=== PATIENT | female | born 1970 | race Caucasian/White ===

== ENCOUNTER → 2016-11-17 | Outpatient (CLI) | payer BC ==
[2016-11-17 10:44] LABS: CH 29.4; CHCM 33.1; HDW 2.98; HGB 12.9 gm/dL (11.4-16.0); MCH 28.8 pg (25.0-35.0); MCHC 32.2 g/dL (31.0-37.0); MCV 89.3 fL (80.0-100.0); RBC 4.48 m/uL (3.80-5.40); RDW 14.1 % (11.5-15.5); WBC 3.8 k/uL (3.8-10.6); WBC (Perox) 3.93
[2016-11-17 10:53] LABS: ALT 22 U/L (9-52); AST 20 U/L (14-36); Alkaline Phosphatase 83 U/L (38-126); Anion Gap 7 mmol/L; Blood Urea Nitrogen 16 mg/dL (7-17); Calcium 9.6 mg/dL (8.4-10.2); Carbon Dioxide 30 mmol/L (22-30); Chloride 105 mmol/L (98-107); Cholesterol 166 mg/dL (<200); Glucose 91 mg/dL (74-99); HDL Cholesterol 64 mg/dL (40-60); Non-African American GFR(MDRD) >60 (>60 ml/min/1.73 sqM); Potassium 4.9 mmol/L (3.5-5.1); Sodium 142 mmol/L (137-145); Total Bilirubin 0.8 mg/dL (0.2-1.3); Total Protein 7.7 g/dL (6.3-8.2); Triglycerides 111 mg/dL (<150)
[2016-11-17 10:56] LABS: Add Differential Manual Differential
[2016-11-17 10:58] LABS: Manual Review Performed; Nucleated Red Blood Cells 0 /100 WBC (0-0); RBC Morphology Normal; Total Cells Counted 100
== END | disposition home or self-care (01) ==
LOC: LABWHC1 10:09
PROVIDERS: ATTEND Family Medicine
DX: Z00.01 Encounter for general adult medical examination with abnormal findings (principal); D72.819 Decreased white blood cell count, unspecified; E03.9 Hypothyroidism, unspecified; E55.9 Vitamin D deficiency, unspecified
CPT/HCPCS: 36415; 80053; 80061; 82306; 84439; 84443; 85025

== ENCOUNTER → 2017-05-25 | Outpatient (CLI) | payer BC ==
--- NOTE | 2017-05-27 08:02 | MM ---
Reason for exam: screening (asymptomatic). Last mammogram was performed 1 year and 2 months ago. History: Family history of breast cancer in paternal aunt. Benign cyst aspiration of the left breast, 1996. Taking hormonal contraceptives for 9 months beginning at age 33. Physical Findings: A clinical breast exam by your physician is recommended on an annual basis and results should be correlated with mammographic findings. MG Screening Mammo w CAD Bilateral CC and MLO view(s) were taken. Prior study comparison: March 27, 2016, bilateral MG screening mammo w CAD. December 26, 2014, bilateral MG screening mammo w CAD. The breast tissue is heterogeneously dense. This may lower the sensitivity of mammography. There is chronic nodularity bilaterally. There is no dominant lesion. No significant changes when compared with prior studies. ASSESSMENT: Benign, BI-RAD 2 RECOMMENDATION: Routine screening mammogram of both breasts in 1 year.
== END ==
LOC: RADMAMWWP 10:44
PROVIDERS: ATTEND Obstetrics & Gynecology
DX: Z12.31 Encounter for screening mammogram for malignant neoplasm of breast (principal)

== ENCOUNTER → 2017-05-25 | Outpatient (CLI) | payer BC ==
[2017-05-25 11:13] LABS: ALT 30 U/L (9-52); AST 19 U/L (14-36); Alkaline Phosphatase 74 U/L (38-126); Anion Gap 9 mmol/L; Blood Urea Nitrogen 10 mg/dL (7-17); Calcium 9.4 mg/dL (8.4-10.2); Carbon Dioxide 25 mmol/L (22-30); Chloride 105 mmol/L (98-107); Glucose 90 mg/dL (74-99); Non-African American GFR(MDRD) >60 (>60 ml/min/1.73 sqM); Potassium 4.6 mmol/L (3.5-5.1); Sodium 139 mmol/L (137-145); Total Bilirubin 0.7 mg/dL (0.2-1.3); Total Protein 7.4 g/dL (6.3-8.2)
[2017-05-25 11:20] LABS: Basophils % (A) 1 %; CH 29.7; CHCM 32.6; Eosinophils # (A) 0.1 k/uL (0-0.7); Eosinophils % (A) 1 %; HDW 3.18; HGB 13.1 gm/dL (11.4-16.0); Luc # (Auto) 0.13; Luc % (Auto) 3; Lymphocytes # (A) 1.6 k/uL (1.0-4.8); Lymphocytes % (A) 35 %; MCH 28.6 pg (25.0-35.0); MCHC 31.2 g/dL (31.0-37.0); MCV 91.6 fL (80.0-100.0); Mean Platelet Volume 6.8; Monocytes # (A) 0.3 k/uL (0-1.0); Monocytes % (A) 7 %; Neutrophils # (A) 2.4 k/uL (1.3-7.7); Neutrophils % (A) 53 %; RBC 4.59 m/uL (3.80-5.40); RDW 13.7 % (11.5-15.5); WBC 4.5 k/uL (3.8-10.6); WBC (Perox) 4.48
== END | disposition home or self-care (01) ==
LOC: LABWHC1 10:34
PROVIDERS: ATTEND Family Medicine
DX: E55.9 Vitamin D deficiency, unspecified (principal); E03.9 Hypothyroidism, unspecified; K21.9 Gastro-esophageal reflux disease without esophagitis; D72.819 Decreased white blood cell count, unspecified
CPT/HCPCS: 36415; 80053; 82306; 84439; 84443; 85025

== ENCOUNTER 2017-11-19 08:24 | Day surgery (SDC) | payer BC ==
[2017-11-16 15:50] VITALS: BMI 32.6
[~2017-11-19 08:24] MED LIST: LACTATED RINGERS 1,000 ML IV SCH; LIDOCAINE 1% 20 ML VIAL (10MG/ML) FOR IV START INTRADERMA PRN; MIDAZOLAM 2 MG/2 ML VIAL IV PRN
[2017-11-19 09:19] VITALS: TEMP 98.5
[2017-11-19 09:21] VITALS: RESP 16
[2017-11-19] MEDS ORDERED: ONDANSETRON 4 MG/2 ML VIAL IVP ONE (09:39)
[2017-11-19] MEDS ORDERED: PROPOFOL 10 MG/ML 20 ML VIAL IV ONE (09:49)
--- NOTE | 2017-11-19 10:21 | P.PCN ---
Date of Procedure: 11/19/17 Procedure(s) Performed: BRIEF HISTORY: Patient is a 46-year-old pleasant white female, scheduled for an elective colonoscopy as a part of evaluation of prior history of colon polyps. PROCEDURE PERFORMED: Colonoscopy. PREOPERATIVE DIAGNOSIS: History of colon polyps. IV sedation per Anesthesia. PROCEDURE: After informed consent was obtained, the patient, was brought into the endoscopy unit. IV sedation was administered by Anesthesia under continuous monitoring. Digital rectal examination was normal. Initially the Olympus CF- 160 flexible video colonoscope was then inserted in the rectum, gradually advanced into the cecum without any difficulty. Careful examination was performed as the scope was gradually being withdrawn. Ileocecal valve and the appendiceal orifice were visualized and appeared normal. Prep was excellent. Mucosa of the cecum, ascending colon, transverse colon, descending colon, sigmoid colon, and rectum appeared normal. Retroflexion was performed in the rectum and no lesions were seen. The patient tolerated the procedure well. IMPRESSION: Normal-appearing colon from rectum to cecum with no evidence of colorectal neoplasia . RECOMMENDATIONS: Findings of this examination were discussed with the patient as well as her family. She was advised to have a repeat surveillance colonoscopy in 5 years from now because of the prior history of colon polyps..
[2017-11-19 10:57] VITALS: BP 122/80; PULSE 70
== END 2017-11-19 11:17 | disposition home or self-care (01) ==
LOC: ORWHC2ENDO 08:24
PROVIDERS: ATTEND Internal Medicine Gastroenterology
DX: Z12.11 Encounter for screening for malignant neoplasm of colon (principal); Z86.010 Personal history of colon polyps; I25.10 Atherosclerotic heart disease of native coronary artery without angina pectoris; E07.9 Disorder of thyroid, unspecified; K21.9 Gastro-esophageal reflux disease without esophagitis; Z79.890 Hormone replacement therapy; Z79.899 Other long term (current) drug therapy; Z88.1 Allergy status to other antibiotic agents; Z88.2 Allergy status to sulfonamides
CPT/HCPCS: J2405; J2704; G0105; 45378

== ENCOUNTER → 2017-11-23 | Outpatient (CLI) | payer BC ==
[2017-11-23 11:16] LABS: ALT 34 U/L (9-52); AST 30 U/L (14-36); Albumin 4.3 g/dL (3.5-5.0); Alkaline Phosphatase 77 U/L (38-126); Anion Gap 12 mmol/L; Blood Urea Nitrogen 12 mg/dL (7-17); Calcium 9.4 mg/dL (8.4-10.2); Carbon Dioxide 27 mmol/L (22-30); Chloride 104 mmol/L (98-107); Glucose 95 mg/dL (74-99); Potassium 4.5 mmol/L (3.5-5.1); Sodium 143 mmol/L (137-145); Total Bilirubin 0.9 mg/dL (0.2-1.3); Total Protein 6.8 g/dL (6.3-8.2)
== END | disposition home or self-care (01) ==
LOC: LABWHC1 10:12
PROVIDERS: ATTEND Family Medicine
DX: E03.9 Hypothyroidism, unspecified (principal); E55.9 Vitamin D deficiency, unspecified; K21.9 Gastro-esophageal reflux disease without esophagitis; E66.09 Other obesity due to excess calories
CPT/HCPCS: 36415; 80053; 82306; 84439; 84443

== ENCOUNTER → 2018-05-18 | Outpatient (CLI) | payer BC ==
--- NOTE | 2018-05-18 08:07 | US ---
EXAMINATION TYPE: US thyroid st tissue head/neck DATE OF EXAM: 05/18/2018 COMPARISON: NONE CLINICAL HISTORY: R22.0 swelling mass probably abnormality. Patient feels like there is something in her throat when she swallows GLAND SIZE: Right Lobe: 4.3 x 1.3 x 1.4 cm Overall Parenchyma: heterogenous Left Lobe: 4.0 x 0.9 x 1.3 cm Overall Parenchyma: heterogeneous Isthmus Thickness: 0.3 cm NODULES RIGHT: # of nodules measured on right: 0 LEFT: # of nodules measured on left: 0 ISTHMUS: # of nodules measured in the isthmus: 0 Bilateral neck scanned, no evidence of lymphadenopathy. Thyroid gland appears diffusely heterogeneous bilaterally. IMPRESSION: Diffuse glandular heterogeneity is nonspecific. No distinct nodules appreciated.
== END | disposition home or self-care (01) ==
LOC: RADUSWWP 07:04
PROVIDERS: ATTEND Family Medicine
DX: R22.0 Localized swelling, mass and lump, head (principal)
CPT/HCPCS: 76536

== ENCOUNTER → 2018-05-27 | Outpatient (CLI) | payer BC ==
[2018-05-27 11:33] LABS: Basophils % (A) 1 %; Eosinophils # (A) 0.1 k/uL (0-0.7); Eosinophils % (A) 3 %; HCT 37.4 % (34.0-46.0); HGB 12.6 gm/dL (11.4-16.0); Lymphocytes # (A) 1.5 k/uL (1.0-4.8); Lymphocytes % (A) 41 %; MCH 29.8 pg (25.0-35.0); MCHC 33.6 g/dL (31.0-37.0); MCV 88.6 fL (80.0-100.0); Mean Platelet Volume 6.9; Monocytes # (A) 0.3 k/uL (0-1.0); Monocytes % (A) 8 %; Neutrophils # (A) 1.6 k/uL (1.3-7.7); Neutrophils % (A) 44 %; Platelet Count 162 k/uL (150-450); RBC 4.22 m/uL (3.80-5.40); RDW 14.8 % (11.5-15.5); WBC 3.7 k/uL (3.8-10.6)
[2018-05-27 19:12] LABS: Albumin 4.5 g/dL (3.80-4.90); Albumin/Globulin Ratio 2.05 (1.20-2.10); Anion Gap 7.3 mmol/L (4.00-12.00); Calcium 9.3 mg/dL (8.7-10.3); Carbon Dioxide 28.7 mmol/L (21.6-31.8); Globulin 2.2 g/dL (2.1-3.7); LDL Cholesterol,Calculated 90.8 mg/dL (0.0-131.0); Potassium 4.5 mmol/L (3.5-5.5); Total Bilirubin 0.8 mg/dL (0.3-1.2); Total Protein 6.7 g/dL (6.2-8.2); VLDL Calculation 20.2 mg/dL (5.00-40.00)
== END | disposition home or self-care (01) ==
LOC: LABWHC1 10:32
PROVIDERS: ATTEND Family Medicine
DX: E03.9 Hypothyroidism, unspecified (principal); E55.9 Vitamin D deficiency, unspecified; K21.9 Gastro-esophageal reflux disease without esophagitis; E66.09 Other obesity due to excess calories
CPT/HCPCS: 36415; 80053; 80061; 82306; 84443; 85025

== ENCOUNTER → 2018-06-07 | Outpatient (CLI) | payer BC ==
--- NOTE | 2018-06-13 09:46 | MM ---
Reason for exam: screening (asymptomatic). Last mammogram was performed 1 year ago. History: Family history of breast cancer in paternal aunt. Benign cyst aspiration of the left breast, 1996. Taking hormonal contraceptives for 9 months beginning at age 33. Physical Findings: A clinical breast exam by your physician is recommended on an annual basis and results should be correlated with mammographic findings. MG Screening Mammo w CAD Bilateral CC and MLO view(s) were taken. Prior study comparison: May 25, 2017, bilateral MG screening mammo w CAD. March 27, 2016, bilateral MG screening mammo w CAD. The breast tissue is heterogeneously dense. This may lower the sensitivity of mammography. No significant changes when compared with prior studies. ASSESSMENT: Benign, BI-RAD 2 RECOMMENDATION: Routine screening mammogram of both breasts in 1 year.
== END | disposition home or self-care (01) ==
LOC: RADMAMWWP 08:16
PROVIDERS: ATTEND Obstetrics & Gynecology
DX: Z12.31 Encounter for screening mammogram for malignant neoplasm of breast (principal)
CPT/HCPCS: 77067

== ENCOUNTER → 2018-11-17 | Outpatient (CLI) | payer BC ==
[2018-11-17 07:52] LABS: HCT 35.5 % (34.0-46.0); HGB 12.1 gm/dL (11.4-16.0); MCH 29.9 pg (25.0-35.0); MCHC 33.9 g/dL (31.0-37.0); MCV 88.1 fL (80.0-100.0); Mean Platelet Volume 6.6; Platelet Count 169 k/uL (150-450); Poikilocytosis Slight; RBC 4.03 m/uL (3.80-5.40); RDW 15.1 % (11.5-15.5); WBC 3.6 k/uL (3.8-10.6)
[2018-11-17 11:40] LABS: Albumin 4.5 g/dL (3.80-4.90); Albumin/Globulin Ratio 2.05 (1.60-3.17); Anion Gap 10.8 mmol/L (4.00-12.00); Calcium 9.5 mg/dL (8.7-10.3); Carbon Dioxide 28.2 mmol/L (21.6-31.8); Globulin 2.2 g/dL (1.6-3.3); Potassium 4.6 mmol/L (3.5-5.5); Total Bilirubin 0.9 mg/dL (0.3-1.2); Total Protein 6.7 g/dL (6.2-8.2)
[2018-11-17 11:42] LABS: Iron Saturation 23.13 (12.00-45.00)
[2018-11-17 11:49] LABS: T4, Free (Free Thyroxine) 1.2 ng/dL (0.80-1.80)
[2018-11-17 11:50] LABS: Vitamin D 25 Hydroxy 35.6 ng/mL (30.0-100.0)
[2018-11-17 11:52] LABS: Insulin Level 6.3 mIU/mL (3.0-25.0)
[2018-11-17 12:22] LABS: Thyroid Peroxidase Antibodies 294.9 U/mL (0.0-60.0)
[2018-11-17 14:40] LABS: Hemoglobin A1C 4.2 % (4.0-6.0)
== END | disposition home or self-care (01) ==
LOC: LABWHC1 07:22
PROVIDERS: ATTEND Clinical Nurse Specialist Women's Health
DX: E03.9 Hypothyroidism, unspecified (principal); E55.9 Vitamin D deficiency, unspecified; L60.9 Nail disorder, unspecified; R53.83 Other fatigue
CPT/HCPCS: 36415; 80053; 82306; 82607; 82728; 83036; 83525; 83540; 83550; 84439; 84443; 84481; 84482; 85027; 86376

== ENCOUNTER → 2019-05-30 | Outpatient (CLI) | payer BC ==
[2019-05-30 11:24] LABS: Basophils # (A) 0.1 k/uL (0-0.2); Basophils % (A) 2 %; Eosinophils # (A) 0.1 k/uL (0-0.7); Eosinophils % (A) 2 %; HCT 38.1 % (34.0-46.0); HGB 12.4 gm/dL (11.4-16.0); Lymphocytes # (A) 1.6 k/uL (1.0-4.8); Lymphocytes % (A) 38 %; MCH 28.5 pg (25.0-35.0); MCHC 32.5 g/dL (31.0-37.0); MCV 87.8 fL (80.0-100.0); Mean Platelet Volume 6.6; Monocytes # (A) 0.3 k/uL (0-1.0); Monocytes % (A) 8 %; Neutrophils % (A) 47 %; Platelet Count 193 k/uL (150-450); RBC 4.34 m/uL (3.80-5.40); RDW 14.9 % (11.5-15.5); WBC 4.1 k/uL (3.8-10.6)
[2019-05-30 17:28] LABS: African American GFR (CKD) 117.9 (60.0-200.0); Albumin 4.5 g/dL (3.80-4.90); Albumin/Globulin Ratio 2.25 (1.60-3.17); Anion Gap 8.4 mmol/L (4.00-12.00); BUN/Creat Ratio 18.57 Ratio (12.00-20.00); Calcium 9.2 mg/dL (8.7-10.3); Carbon Dioxide 26.6 mmol/L (21.6-31.8); Chol/HDL Ratio 2.8; LDL Cholesterol,Calculated 71.4 mg/dL (0.0-131.0); Potassium 4.8 mmol/L (3.5-5.5); Total Bilirubin 0.7 mg/dL (0.3-1.2); Total Protein 6.5 g/dL (6.2-8.2); VLDL Calculation 18.6 mg/dL (5.00-40.00)
== END | disposition home or self-care (01) ==
LOC: LABWHC1 10:14
PROVIDERS: ATTEND Family Medicine
DX: E03.9 Hypothyroidism, unspecified (principal); E55.9 Vitamin D deficiency, unspecified
CPT/HCPCS: 36415; 80053; 80061; 82306; 82607; 85025

== ENCOUNTER → 2019-11-28 | Outpatient (CLI) | payer BC ==
[2019-11-28 10:33] LABS: Basophils % (A) 1 %; Eosinophils # (A) 0.1 k/uL (0-0.7); Eosinophils % (A) 1 %; HCT 37.3 % (34.0-46.0); Hypochromasia Slight; Lymphocytes # (A) 1.5 k/uL (1.0-4.8); Lymphocytes % (A) 40 %; MCH 28.6 pg (25.0-35.0); MCHC 32.2 g/dL (31.0-37.0); MCV 88.8 fL (80.0-100.0); Mean Platelet Volume 7.5; Monocytes # (A) 0.2 k/uL (0-1.0); Monocytes % (A) 6 %; Neutrophils # (A) 1.8 k/uL (1.3-7.7); Neutrophils % (A) 48 %; Platelet Count 180 k/uL (150-450); RDW 14.8 % (11.5-15.5); WBC 3.8 k/uL (3.8-10.6)
[2019-11-28 15:55] LABS: African American GFR (CKD) 117.9 (60.0-200.0); Albumin 4.3 g/dL (3.80-4.90); Albumin/Globulin Ratio 1.95 (1.60-3.17); Anion Gap 6.1 mmol/L (4.00-12.00); Calcium 9.3 mg/dL (8.7-10.3); Carbon Dioxide 28.9 mmol/L (21.6-31.8); Globulin 2.2 g/dL (1.6-3.3); Non-African American GFR(CKD) 101.7 (60.0-200.0); Potassium 4.7 mmol/L (3.5-5.5); Total Bilirubin 0.9 mg/dL (0.2-1.2); Total Protein 6.5 g/dL (6.2-8.2)
[2019-11-28 16:01] LABS: T4, Free (Free Thyroxine) 1.2 ng/dL (0.80-1.80)
== END | disposition home or self-care (01) ==
LOC: LABWHC1 09:54
PROVIDERS: ATTEND Family Medicine
DX: Z00.01 Encounter for general adult medical examination with abnormal findings (principal); E03.9 Hypothyroidism, unspecified; D72.819 Decreased white blood cell count, unspecified; E55.9 Vitamin D deficiency, unspecified
CPT/HCPCS: 36415; 80053; 82306; 84439; 84443; 85025

== ENCOUNTER → 2020-05-15 | Outpatient (CLI) | payer BC | END | disposition home or self-care (01) | LOC: LABWHC1 11:01 | PROVIDERS: ATTEND Obstetrics & Gynecology | DX: U07.1 COVID-19 (principal) | CPT/HCPCS: U0003; C9803 ==

== ENCOUNTER → 2020-05-31 | Outpatient (CLI) | payer BC ==
[2020-05-31 08:21] LABS: Basophils % (A) 1 %; Eosinophils % (A) 1 %; HCT 36.8 % (34.0-46.0); HGB 12.1 gm/dL (11.4-16.0); Lymphocytes # (A) 1.3 k/uL (1.0-4.8); Lymphocytes % (A) 36 %; MCH 28.7 pg (25.0-35.0); MCV 87.1 fL (80.0-100.0); Mean Platelet Volume 6.9; Monocytes # (A) 0.3 k/uL (0-1.0); Monocytes % (A) 7 %; Neutrophils # (A) 1.9 k/uL (1.3-7.7); Neutrophils % (A) 52 %; Platelet Count 156 k/uL (150-450); RBC 4.22 m/uL (3.80-5.40); RDW 14.4 % (11.5-15.5); WBC 3.6 k/uL (3.8-10.6)
[2020-05-31 16:06] LABS: African American GFR (CKD) 117.1 (60.0-200.0); Albumin 4.4 g/dL (3.80-4.90); Albumin/Globulin Ratio 2.1 (1.60-3.17); Anion Gap 6.7 mmol/L (4.00-12.00); Calcium 9.3 mg/dL (8.7-10.3); Carbon Dioxide 29.3 mmol/L (21.6-31.8); Chol/HDL Ratio 2.65; Globulin 2.1 g/dL (1.6-3.3); LDL Cholesterol,Calculated 63.8 mg/dL (0.0-131.0); Potassium 4.7 mmol/L (3.5-5.5); Total Bilirubin 0.8 mg/dL (0.3-1.2); Total Protein 6.5 g/dL (6.2-8.2); VLDL Calculation 17.2 mg/dL (5.00-40.00)
[2020-05-31 16:07] LABS: T4, Free (Free Thyroxine) 1.4 ng/dL (0.80-1.80)
== END | disposition home or self-care (01) ==
LOC: LABWHC1 07:30
PROVIDERS: ATTEND Family Medicine
DX: E03.9 Hypothyroidism, unspecified (principal); E55.9 Vitamin D deficiency, unspecified; K21.9 Gastro-esophageal reflux disease without esophagitis; R60.0 Localized edema
CPT/HCPCS: 36415; 80053; 80061; 82306; 84439; 84443; 85025

== ENCOUNTER → 2020-07-30 | Outpatient (CLI) | payer BC ==
--- NOTE | 2020-08-01 13:57 | MM ---
Reason for exam: screening (asymptomatic). Last mammogram was performed 1 year and 1 month ago. History: Family history of breast cancer in paternal aunt. Benign cyst aspiration of the left breast, 1996. Taking hormonal contraceptives for 9 months beginning at age 33. Physical Findings: A clinical breast exam by your physician is recommended on an annual basis and results should be correlated with mammographic findings. MG Screening Mammo w CAD Bilateral CC and MLO view(s) were taken. Prior study comparison: June 29, 2019, bilateral MG screening mammo w CAD. June 07, 2018, bilateral MG screening mammo w CAD. The breast tissue is heterogeneously dense. This may lower the sensitivity of mammography. No significant changes when compared with prior studies. ASSESSMENT: Negative, BI-RAD 1 RECOMMENDATION: Routine screening mammogram of both breasts in 1 year.
== END | disposition home or self-care (01) ==
LOC: RADMAMWWP 13:54
PROVIDERS: ATTEND Obstetrics & Gynecology
DX: Z12.31 Encounter for screening mammogram for malignant neoplasm of breast (principal)
CPT/HCPCS: 77067

== ENCOUNTER → 2020-11-29 | Outpatient (CLI) | payer BC ==
[2020-11-29 19:29] LABS: African American GFR (CKD) 99.6 (60.0-200.0); Albumin 4.7 g/dL (3.80-4.90); Albumin/Globulin Ratio 2.04 (1.60-3.17); Anion Gap 9.1 mmol/L (4.00-12.00); Calcium 9.3 mg/dL (8.7-10.3); Carbon Dioxide 26.9 mmol/L (21.6-31.8); Globulin 2.3 g/dL (1.6-3.3); Total Bilirubin 0.9 mg/dL (0.3-1.2)
[2020-11-29 19:38] LABS: T4, Free (Free Thyroxine) 1.2 ng/dL (0.80-1.80)
[2020-11-29 20:52] LABS: Basophils # (A) 0.02 X 10*3/uL (0.00-0.10); Basophils % (A) 0.4 %; Eosinophils # (A) 0.05 X 10*3/uL (0.04-0.35); Eosinophils % (A) 1.1 %; HCT 36.7 % (37.2-46.3); HGB 11.5 g/dL (12.0-15.0); Lymphocytes # (A) 1.87 X 10*3/uL (0.90-5.00); Lymphocytes % (A) 41.3 %; MCH 28.2 pg (27.0-32.0); MCHC 31.3 g/dL (32.0-37.0); Mean Platelet Volume 10.3 fL (9.5-12.2); Monocytes # (A) 0.57 X 10*3/uL (0.20-1.00); Monocytes % (A) 12.6 %; Neutrophils # (A) 2.01 X 10*3/uL (1.80-7.70); Neutrophils % (A) 44.4 %; Platelet Count 157 X 10*3/uL (140-440); RBC 4.08 X 10*6/uL (4.10-5.20); RDW 14.4 % (11.5-14.5); WBC 4.53 X 10*3/uL (4.50-10.00)
== END | disposition home or self-care (01) ==
LOC: LABWHC1 14:00
PROVIDERS: ATTEND Obstetrics & Gynecology
DX: E03.9 Hypothyroidism, unspecified (principal); K21.9 Gastro-esophageal reflux disease without esophagitis; D72.819 Decreased white blood cell count, unspecified; E55.9 Vitamin D deficiency, unspecified
CPT/HCPCS: 36415; 80053; 82306; 84439; 84443; 85025

== ENCOUNTER → 2020-12-06 | Outpatient (CLI) | payer BC ==
[2020-12-06 20:55] LABS: Basophils # (A) 0.02 X 10*3/uL (0.00-0.10); Basophils % (A) 0.5 %; Eosinophils # (A) 0.07 X 10*3/uL (0.04-0.35); Eosinophils % (A) 1.8 %; HCT 36.7 % (37.2-46.3); HGB 11.2 g/dL (12.0-15.0); Lymphocytes % (A) 45.3 %; MCH 27.2 pg (27.0-32.0); MCHC 30.5 g/dL (32.0-37.0); MCV 89.1 fL (80.0-97.0); Mean Platelet Volume 10.4 fL (9.5-12.2); Monocytes # (A) 0.52 X 10*3/uL (0.20-1.00); Monocytes % (A) 13.1 %; Neutrophils # (A) 1.55 X 10*3/uL (1.80-7.70); Platelet Count 157 X 10*3/uL (140-440); RBC 4.12 X 10*6/uL (4.10-5.20); RDW 14.4 % (11.5-14.5); WBC 3.97 X 10*3/uL (4.50-10.00)
[2020-12-06 21:50] LABS: % Iron Saturation 21.25 (12.00-45.00)
== END | disposition home or self-care (01) ==
LOC: LABWHC1 12:37
PROVIDERS: ATTEND Family Medicine
DX: D64.9 Anemia, unspecified (principal)
CPT/HCPCS: 36415; 82607; 82728; 82747; 83540; 83550; 85025

== ENCOUNTER → 2021-06-07 | Outpatient (CLI) | payer BC ==
[2021-06-07 18:17] LABS: ALT 27 U/L (8-44); AST 25 U/L (13-35); African American GFR (CKD) 118.6 (60.0-200.0); Albumin 4.5 g/dL (3.8-4.9); Albumin/Globulin Ratio 2.12 (1.60-3.17); Alkaline Phosphatase 92 U/L (41-126); Blood Urea Nitrogen 11.4 mg/dL (9.0-27.0); Carbon Dioxide 24.3 mmol/L (21.6-31.8); Chloride 103 mmol/L (96-109); Chol/HDL Ratio 2.73 Ratio; Globulin 2.1 g/dL (1.6-3.3); Glucose 100 mg/dL (70-110); LDL Cholesterol,Calculated 56.6 mg/dL (0.0-131.0); Non-African American GFR(CKD) 102.3 (60.0-200.0); Potassium 4.7 mmol/L (3.5-5.5); Sodium 140 mmol/L (135-145); Total Protein 6.7 g/dL (6.2-8.2); VLDL Calculation 16.26 mg/dL (5.00-40.00)
== END | disposition home or self-care (01) ==
LOC: LABWHC1 09:51
PROVIDERS: ATTEND Family Medicine
DX: D72.819 Decreased white blood cell count, unspecified (principal); D64.9 Anemia, unspecified; E55.9 Vitamin D deficiency, unspecified; E03.9 Hypothyroidism, unspecified
CPT/HCPCS: 36415; 80053; 80061; 84439; 84443

== ENCOUNTER → 2021-06-10 | Outpatient (CLI) | payer BC ==
[2021-06-10 14:55] LABS: Basophils # (A) 0.01 X 10*3/uL (0.00-0.10); Basophils % (A) 0.3 %; Eosinophils # (A) 0.03 X 10*3/uL (0.04-0.35); Eosinophils % (A) 0.9 %; HCT 33.2 % (37.2-46.3); HGB 10.4 g/dL (12.0-15.0); Lymphocytes # (A) 1.35 X 10*3/uL (0.90-5.00); Lymphocytes % (A) 41.8 %; MCHC 31.3 g/dL (32.0-37.0); MCV 89.2 fL (80.0-97.0); Mean Platelet Volume 10.3 fL (9.5-12.2); Monocytes # (A) 0.43 X 10*3/uL (0.20-1.00); Monocytes % (A) 13.3 %; Neutrophils % (A) 43.4 %; Platelet Count 143 X 10*3/uL (140-440); RBC 3.72 X 10*6/uL (4.10-5.20); RDW 16.2 % (11.5-14.5); WBC 3.23 X 10*3/uL (4.50-10.00)
== END | disposition home or self-care (01) ==
LOC: LABWHC1 08:06
PROVIDERS: ATTEND Family Medicine
DX: E03.9 Hypothyroidism, unspecified (principal); D64.9 Anemia, unspecified; E55.9 Vitamin D deficiency, unspecified; D72.819 Decreased white blood cell count, unspecified
CPT/HCPCS: 36415; 85025

== ENCOUNTER → 2021-07-01 | Outpatient (CLI) | payer BC ==
--- NOTE | 2021-07-01 18:19 | US ---
EXAMINATION TYPE: US abdomen limited DATE OF EXAM: 07/01/2021 COMPARISON: NONE CLINICAL HISTORY: 50-year-old female R22.2 localized swelling mass and lump, trunk. Patient has lump for a few weeks. TECHNIQUE: Multiple sonographic images of the left upper quadrant along the patient's site of palpabl e abnormality. FINDINGS: Sales Support Assistant notes: Area of palp correlates to enlarged spleen measuring 25.5cm in length and 1968.5 ml in volume. Incidental mildly enlarged portal vein 1.6cm. Incidental gallstones seen within contracted GB Left kidney measures 9.3 cm without hydronephrosis. IMPRESSION: 1. Targeted scanning along the patient's left upper quadrant palpable site shows severe splenomegaly up to 25.5 cm. Further correlation and workup is advised as the degree of splenic enlargement places the patient at risk for splenic injury. 2. Portal vein caliber is mildly enlarged. This may reflect underlying portal venous hypertension. Ag ain, consider further workup. 3. Cholelithiasis.
== END | disposition home or self-care (01) ==
LOC: RADUSWWP 14:48
PROVIDERS: ATTEND Family Medicine
DX: R16.1 Splenomegaly, not elsewhere classified (principal); K80.20 Calculus of gallbladder without cholecystitis without obstruction
CPT/HCPCS: 76705

== ENCOUNTER → 2021-07-02 | Outpatient (CLI) | payer BC ==
[2021-07-02 12:02] LABS: ALT 16 U/L (4-34); AST 36 U/L (14-36); African American GFR (CKD) >90 (>60 ml/min/1.73 sqM); Albumin 4.3 g/dL (3.5-5.0); Alkaline Phosphatase 77 U/L (38-126); Anion Gap 8 mmol/L; Blood Urea Nitrogen 11 mg/dL (7-17); Calcium 9.3 mg/dL (8.4-10.2); Carbon Dioxide 30 mmol/L (22-30); Chloride 100 mmol/L (98-107); Glucose 109 mg/dL (74-99); Non-African American GFR(CKD) >90 (>60 ml/min/1.73 sqM); Potassium 4.1 mmol/L (3.5-5.1); Sodium 138 mmol/L (137-145); Total Bilirubin 1.6 mg/dL (0.2-1.3); Total Protein 6.8 g/dL (6.3-8.2)
[2021-07-02 12:05] LABS: Anisocytosis Slight; HCT 28.8 % (34.0-46.0); HGB 9.3 gm/dL (11.4-16.0); Hypochromasia Slight; MCH 28.3 pg (25.0-35.0); MCHC 32.2 g/dL (31.0-37.0); Mean Platelet Volume 7.5; Platelet Count 149 k/uL (150-450); Poikilocytosis Moderate; RBC 3.27 m/uL (3.80-5.40); RDW 17.5 % (11.5-15.5); WBC 2.9 k/uL (3.8-10.6)
[2021-07-02 12:58] LABS: Band Neutrophils % 2 %; Eosinophils # (M) 0.03 k/uL (0-0.7); Lymphocytes # (M) 1.28 k/uL (1.0-4.8); Monocytes # (M) 0.23 k/uL (0-1.0); Neutrophils % (M) 45 %; Nucleated Red Blood Cells 0 /100 WBC (0-0); Total Cells Counted 100
[2021-07-02 12:59] LABS: Polychromasia Present
--- NOTE | 2021-07-03 09:01 | CT ---
EXAMINATION TYPE: CT ChestAbdPelvis w con DATE OF EXAM: 07/02/2021 COMPARISON: Ultrasound abdomen limited from one day earlier. HISTORY: Splenomegaly and chest pain. Recent abnormal ultrasound. Palpable mass in the abdomen. CT DLP: 1949 mGycm. Automated Exposure Control for Dose Reduction was Utilized. CONTRAST: CT scan of the thorax, abdomen and pelvis is performed with IV Contrast, patient injected with 100 ml mL of Isovue 300. FINDINGS: LUNGS: The lungs are grossly clear, there is no concerning parenchymal mass or nodule identified. T here is no pleural effusion or pneumothorax seen. The tracheobronchial tree is patent. MEDIASTINUM: There are no greater than 1 cm hilar or mediastinal lymph nodes. No cardiomegaly or pe ricardial effusion is seen. Ascending aorta measures up to 3.6 cm in diameter. LIVER/GB: Mild hepatomegaly. Main portal vein is patent and mildly dilated measuring up to 1.7 cm axi al image 64. There is dilated but patent tortuous draining splenic vein. Subtle low dense intralumina l gallstones correlate with recent ultrasound. PANCREAS: No significant abnormality is seen. SPLEEN: Confirmation of more marked splenomegaly occupying majority of the left abdomen measuring 24. 5 cm long axis coronal image 43. Local mass effect particularly on left kidney is present. ADRENALS: No significant abnormality is seen. KIDNEYS: No significant abnormality is seen. BOWEL: Oral contrast reaches level of the proximal left colon. No suspicious small or large bowel dil atation is seen. Ligament of Treitz is pushed to the right of midline due to splenomegaly. GENITAL ORGANS: Uterus surgically absent or atrophic in appearance. LYMPH NODES: No greater than 1cm abdominal or pelvic lymph nodes are appreciated. OSSEOUS STRUCTURES: Moderate to severe disc space narrowing lumbosacral junction with vacuum disc phe nomenon. OTHER: No significant additional abnormality is seen. IMPRESSION: Marked splenomegaly is confirmed. Dilated tortuous but patent splenic vein redemonstrated . Patent but dilated portal vein again seen. Hepatomegaly is present but to lesser degree. No abnorma l adenopathy clearly seen. No ascites evident. Further clinical workup advised.
[2021-07-03 17:06] LABS: EBV-EA (IgG) >8.0 AI; EBV-EBNA(IgG) <0.2 AI; EBV-VCA (IgG) >8.0 AI
== END | disposition home or self-care (01) ==
LOC: RADCTMAIN 10:09
PROVIDERS: ATTEND Family Medicine
DX: R16.2 Hepatomegaly with splenomegaly, not elsewhere classified (principal); I86.8 Varicose veins of other specified sites
CPT/HCPCS: 86665 ×2; 80053; 86663; 85025; 86664; 71260; 74177; 36415; Q9967

== ENCOUNTER 2021-07-17 06:11 | Day surgery (SDC) | payer BC ==
[2021-07-15 15:01] VITALS: BMI 30.5
[~2021-07-17 06:11] MED LIST changes: -LIDOCAINE 1% 20 ML VIAL (10MG/ML) FOR IV START INTRADERMA PRN; -MIDAZOLAM 2 MG/2 ML VIAL IV PRN
[2021-07-17 06:46] VITALS: TEMP 99.3
[2021-07-17] MEDS ORDERED: PROPOFOL 10 MG/ML 20 ML VIAL IV ONE (07:00)
[2021-07-17] MEDS ORDERED: ONDANSETRON 4 MG/2 ML VIAL ONE (07:00)
[2021-07-17 07:43] VITALS: RESP 16
[2021-07-17 08:25] VITALS: BP 109/71; PULSE 94
[2021-07-17 09:40] LABS: Anisocytosis Slight; Hypochromasia Moderate; MCH 28.7 pg (25.0-35.0); MCHC 32.7 g/dL (31.0-37.0); MCV 87.7 fL (80.0-100.0); Mean Platelet Volume 8.9; Platelet Count 152 k/uL (150-450); Poikilocytosis Moderate; RBC 2.15 m/uL (3.80-5.40); Reticulocyte % 7.6 % (0.5-2.0); WBC 2.2 k/uL (3.8-10.6)
--- NOTE | 2021-07-17 09:47 | PCN ---
PROCEDURE NOTE DATE OF PROCEDURE: 07/17/2021 PREOPERATIVE DIAGNOSIS: Splenomegaly and pancytopenia. POSTOPERATIVE DIAGNOSIS: Splenomegaly and pancytopenia. ANESTHESIA: Local with IV systemic sedation. DETAILS: Utilizing sterile technique, the skin overlying the right iliac crest was prepared with Betadine and alcohol. After adequate sterile draping, systemic sedation and local anesthesia with 1% lidocaine, a size 11 4-inch Jamshidi needle was utilized to access the periosteum with ease. A total of 17 mL of aspirate and 3 cm bone core biopsies were obtained. The patient tolerated the procedure extremely well. There was no immediate procedure-related complication. Total blood loss less than 1 mL. Results pending. MMODL / IJN: [id number] /
[2021-07-17 10:17] LABS: HCT 18.8 % (34.0-46.0); HGB 6.2 gm/dL (11.4-16.0)
[2021-07-17 11:18] LABS: Band Neutrophils % 3 %; Monocytes # (M) 0.42 k/uL (0-1.0); Neutrophils % (M) 46 %; Nucleated Red Blood Cells 0 /100 WBC (0-0); Total Cells Counted 100
[2021-07-17 11:20] LABS: Polychromasia Present
== END 2021-07-17 08:05 | disposition home or self-care (01) ==
LOC: OR 06:11
PROVIDERS: ATTEND Internal Medicine Hematology & Oncology
DX: D61.818 Other pancytopenia (principal); R16.1 Splenomegaly, not elsewhere classified
CPT/HCPCS: 38222; 85025; 85045; J2405; J2704

== ENCOUNTER 2021-07-22 15:50 | Inpatient (IN) | payer BC ==
--- NOTE | 2021-07-22 16:24 | ED ---
General Adult HPI - General Chief complaint: Recheck/Abnormal Lab/Rx Stated complaint: Sent by for blood transfusion Time Seen by Provider: 07/22/21 15:58 Source: patient, RN notes reviewed Mode of arrival: ambulatory Limitations: no limitations - History of Present Illness Initial comments: Patient is a pleasant 50-year-old female presenting to the emergency department with reported anemia. Patient states blood was checked today with a level of 5.2. Patient has a recent diagnosis of splenomegaly that they believe is related to her anemia. Patient does not have further diagnosis. Patient has been fatigued over the past few weeks, worse recently. No bleeding. No black stool. No dyspnea. - Related Data Home Medications Medication Instructions Recorded Confirmed Levothyroxine Sodium [Synthroid] 75 mcg PO DAILY 11/19/17 07/17/21 Pantoprazole Sodium [Protonix] 40 mg PO DAILY 11/19/17 07/17/21 Ascorbic Acid [Vitamin C] 500 mg PO DAILY 07/15/21 07/17/21 Cholecalciferol [Vitamin D3 (25 25 mcg PO DAILY 07/15/21 07/17/21 Mcg = 1000 Iu)] Cyanocobalamin (Vitamin B-12) 1,000 mcg PO DAILY 07/15/21 07/17/21 [Vitamin B-12] Allergies Allergy/AdvReac Type Severity Reaction Status Date / Time cefdinir [From Omnicef] Allergy Rash/Hives Verified 07/15/21 14:49 Penicillins Allergy Rash/Hives Verified 07/15/21 14:49 Sulfa (Sulfonamide Allergy Rash/Hives Verified 07/15/21 14:49 Antibiotics) Review of Systems ROS Statement: Those systems with pertinent positive or pertinent negative responses have been documented in the HPI. ROS Other: All systems not noted in ROS Statement are negative. Constitutional: Denies: fever Eyes: Denies: eye pain ENT: Denies: ear pain Respiratory: Denies: cough, dyspnea Cardiovascular: Denies: chest pain Endocrine: Reports: fatigue Gastrointestinal: Denies: abdominal pain Genitourinary: Denies: dysuria Musculoskeletal: Denies: back pain Skin: Denies: rash Neurological: Denies: weakness Past Medical History Past Medical History: GERD/Reflux, Thyroid Disorder Additional Past Medical History / Comment(s): very enlarged spleen discovered recently per pt, no recent colds or illnesses History of Any Multi-Drug Resistant Organisms: None Reported Past Surgical History: Hysterectomy, Orthopedic Surgery, Uterine Ablation Additional Past Surgical History / Comment(s): COLONOSCOPY X 3. RT BUNIONECTOMY Past Anesthesia/Blood Transfusion Reactions: Postoperative Nausea & Vomiting (PONV) Past Psychological History: No Psychological Hx Reported Smoking Status: Never smoker Past Alcohol Use History: Rare Past Drug Use History: None Reported - Past Family History Mother Family Medical History: Cancer Father Family Medical History: Cancer Sister(s) Family Medical History: Cancer General Exam Limitations: no limitations General appearance: alert, in no apparent distress Head exam: Present: normocephalic Eye exam: Present: normal appearance Neck exam: Present: normal inspection Respiratory exam: Present: normal lung sounds bilaterally Cardiovascular Exam: Present: regular rate, normal rhythm GI/Abdominal exam: Present: organomegaly (Splenomegaly) Extremities exam: Present: normal inspection Neurological exam: Present: alert Psychiatric exam: Present: normal affect, normal mood Skin exam: Present: normal color Course Vital Signs 07/22/21 16:03 Temperature 98.0 F Pulse Rate 114 H Respiratory 18 Rate Blood Pressure 158/78 O2 Sat by Pulse 99 Oximetry Medical Decision Making - Medical Decision Making Case discussed with practitioner Madison rowell who recommends 1 unit of irradiated blood and admission. They will follow-up. Dr. Zurita has been paged for admission covering for Dr. Ribeiro. Disposition Clinical Impression: Anemia, Splenomegaly Disposition: ADMITTED IP TO THIS HOSP Is patient prescribed a controlled substance at d/c from ED?: No Referrals: Kurt Ribeiro III, MD [Primary Care Provider] - 1-2 days Decision Time: 16:30
[2021-07-22] MEDS ORDERED: NALOXONE 0.4 MG/ML 1 ML VIAL IV PRN (16:30)
[2021-07-22 19:37] LABS: Anisocytosis Moderate; Hypochromasia Moderate; MCH 29.4 pg (25.0-35.0); MCHC 33.2 g/dL (31.0-37.0); MCV 88.5 fL (80.0-100.0); Mean Platelet Volume 7.9; Platelet Count 148 k/uL (150-450); Poikilocytosis Moderate; RBC 1.67 m/uL (3.80-5.40); RDW 20.1 % (11.5-15.5); WBC 2.1 k/uL (3.8-10.6)
[2021-07-22 19:44] LABS: HCT 14.8 % (34.0-46.0); HGB 4.9 gm/dL (11.4-16.0)
[2021-07-22 19:46] LABS: ALT 11 U/L (4-34); AST 58 U/L (14-36); African American GFR (CKD) >90 (>60 ml/min/1.73 sqM); Albumin 3.7 g/dL (3.5-5.0); Albumin/Globulin Ratio 1.8; Alkaline Phosphatase 43 U/L (38-126); Anion Gap 8 mmol/L; Blood Urea Nitrogen 9 mg/dL (7-17); Calcium 8.5 mg/dL (8.4-10.2); Carbon Dioxide 27 mmol/L (22-30); Chloride 97 mmol/L (98-107); Globulin 2.1 g/dL; Glucose 116 mg/dL (74-99); Non-African American GFR(CKD) >90 (>60 ml/min/1.73 sqM); Potassium 3.9 mmol/L (3.5-5.1); Sodium 132 mmol/L (137-145); Total Bilirubin 3.2 mg/dL (0.2-1.3); Total Protein 5.8 g/dL (6.3-8.2)
--- NOTE | 2021-07-22 19:46 | XR ---
EXAMINATION TYPE: XR chest 1V portable DATE OF EXAM: 07/22/2021 COMPARISON: NONE HISTORY: Short of breath TECHNIQUE: Single view FINDINGS: There is no heart failure nor confluent pneumonic infiltrate. Costophrenic angles are clear . Heart size is fairly normal. There is no pleural effusion. There are chest leads. Bony thorax is in tact. IMPRESSION: No active cardiopulmonary disease.
[2021-07-22 19:48] LABS: C Reactive Protein 2.2 mg/dL (<1.0)
[2021-07-22 20:27] LABS: Appearance,Urine Clear (Clear); Bilirubin,Urine Negative (Negative); Blood,Urine Small (Negative); Color,Urine Yellow; Glucose,Urine (UA) Negative (Negative); Ketones,Urine Negative (Negative); Leukocyte Esterase,Urine Negative (Negative); Nitrite,Urine Negative (Negative); Protein,Urine Negative (Negative); Specific Gravity,Urine 1.002 (1.001-1.035); Squamous Epithelial Cell,Urine 1 /hpf (0-4); Urobilinogen,Urine <2.0 mg/dL (<2.0); WBC,Urine 1 /hpf (0-5)
--- NOTE | 2021-07-22 20:31 | HP ---
HISTORY AND PHYSICAL DATE OF SERVICE: 07/22/2021. CHIEF COMPLAINT: Anemia. HISTORY OF PRESENT ILLNESS: This 50-year-old woman with a past medical history of GERD, hypothyroidism, history of hysterectomy, DJD, being followed by Dr. Ribeiro in the outpatient setting, was recently noted to have anemia. The patient also has splenomegaly also. Dr. Parks is evaluating the patient in the outpatient setting and the patient apparently had bone marrow. The bone marrow biopsy is not available at this time. In June,, the patient had a CT scan of the abdomen and pelvis which showed marked splenomegaly and dilated tortuous but patent splenic veins are demonstrated. Patient dilated portal vein was also noted. Hepatomegaly was also noted. The patient admitted to the hospital for further evaluation and treatment. The hemoglobin on admission was 5.2. Irradiated red cells recommended by Hematology/ Oncology. There is no history of fever, rigors, chills at this time. PAST MEDICAL HISTORY: History of GERD, hypothyroidism, splenomegaly recently. MEDICATIONS: Prior to admission in include home medications are: Protonix, levothyroxine, cyanocobalamin, cholecalciferol, ascorbic acid. ALLERGIES: CEFTIN, PENICILLIN, SULFA. FAMILY HISTORY: History of cancer in the family. SOCIAL HISTORY: No history of smoking. No history of alcohol intake. 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 REVIEW OF SYSTEMS: ENT: No diminished vision. No diminished hearing. CARDIOVASCULAR: S1, S2. RESPIRATIONS: Breath sounds diminished in the bases. GI: As mentioned earlier. : No dysuria. NERVOUS SYSTEM: No numbness or weakness. ALLERGY/IMMUNOLOGY: No asthma or hayfever. MUSCULOSKELETAL: As mentioned earlier. HEMATOLOGY/ONCOLOGY: No history of anemia. ENDOCRINE as mentioned earlier. CONSTITUTIONAL: As mentioned earlier. DERMATOLOGY: Negative. RHEUMATOLOGY: Negative. PSYCHIATRIC: As mentioned earlier. PHYSICAL EXAM: The patient is alert and oriented times three. Pulse is 114. Blood pressure 150/64, respiration 18, temperature 98 degrees, pulse ox 99% on room air. HEENT: Conjunctivae pale. NECK: No JVD. CARDIOVASCULAR: S1, S2 muffled. RESPIRATION: Breath sounds diminished in the bases. ABDOMEN: Soft, nontender. LEGS: No edema. No swelling. NERVOUS SYSTEM: No focal deficits. LABS: 6.2 hemoglobin, WBC 2.2, platelets are 152. Otherwise, retic only 7.6. Glucose is 109, bilirubin is 1.6, otherwise other tests are normal. Immunology showed thyroid peroxidase is high. was normal. Otherwise bone marrow reports showed a hypercellular marrow with trilineage hematopoiesis increased . nuclear body irregular nuclear contour was suggested. Myelodysplastic syndrome with single images noted. ASSESSMENT: 1. Anemia with splenomegaly, possible myelodysplastic syndrome. 2. Rule out portal vein thrombosis. 3. Leukopenia. 4. History of gastroesophageal reflux disease. 5. Hypothyroidism. 6. History of hysterectomy. 7. History of uterine ablation. 8. History of colonoscopy. 9. Obesity with body mass of 30.5. 10.FULL CODE. RECOMMENDATIONS AND DISCUSSION: Continue current medications, management and symptomatic treatment. Otherwise, we will continue to monitor and transfusion. Closely follow with Hematology/Oncology. Prognosis guarded. Further recommendations to follow. MMODL / IJN: [id number] / MTDD
[2021-07-22 20:49] LABS: Amphetamine Screen,Urine Not Detected (NotDetected); Barbiturate Screen,Urine Not Detected (NotDetected); Benzodiazepines Screen,Urine Not Detected (NotDetected); Cocaine Screen,Urine Not Detected (NotDetected); Methadone Screen, Urine Not Detected (NotDetected); Opiate Screen,Urine Not Detected (NotDetected); Oxycodone Screen, Urine Not Detected (NotDetected); Phencyclidine Screen,Urine Not Detected (NotDetected); Tricyclic Antidepressant,Urine Not Detected (NotDetected); Urn Cannabinoid Scrn Not Detected (NotDetected)
[2021-07-22 21:09] LABS: Band Neutrophils % 2 %; Eosinophils # (M) 0.04 k/uL (0-0.7); Lymphocytes # (M) 0.86 k/uL (1.0-4.8); Monocytes # (M) 0.21 k/uL (0-1.0); Neutrophils % (M) 45 %; Nucleated Red Blood Cells 0 /100 WBC (0-0); Polychromasia Present; Total Cells Counted 100
[2021-07-22 21:26] LABS: Erythrocyte Sedimentation Rate 129 mm/hr (0-20)
[2021-07-23 05:24] LABS: % Iron Saturation 32.94 (12.00-45.00); Iron 77 ug/dL (50-170)
[2021-07-23 05:51] LABS: Anisocytosis Moderate; Hypochromasia Moderate; MCH 28.5 pg (25.0-35.0); MCV 89.2 fL (80.0-100.0); Mean Platelet Volume 7.5; Platelet Count 144 k/uL (150-450); Poikilocytosis Moderate; RBC 1.62 m/uL (3.80-5.40); RDW 20.1 % (11.5-15.5)
[2021-07-23 06:47] LABS: HGB 4.6 gm/dL (11.4-16.0)
[2021-07-23 06:48] LABS: HCT 14.4 % (34.0-46.0)
[2021-07-23] MEDS: LEVOTHYROXINE 75 MCG TAB PO SCH (06:50)
[2021-07-23] MEDS ORDERED: PANTOPRAZOLE 40 MG TABLET PO SCH (07:30)
[2021-07-23] MEDS: CYANOCOBALAMIN 500 MCG TAB PO SCH (08:24)
[2021-07-23] MEDS: CHOLECALCIFEROL 25 MCG (1000 IU) TABLET PO SCH (08:24)
[2021-07-23 09:17] LABS: INR 0.99 (0.90-1.11); Prothrombin Time 10.9 sec (9.9-11.9)
[2021-07-23 09:27] LABS: African American GFR (CKD) 125.1 (60.0-200.0); Albumin 3.9 g/dL (3.8-4.9); Albumin/Globulin Ratio 2.35 (1.60-3.17); Anion Gap 11.6 mmol/L (10.00-18.00); BUN/Creat Ratio 11.64 Ratio (12.00-20.00); Blood Urea Nitrogen 6.5 mg/dL (9.0-27.0); Calcium 8.6 mg/dL (8.7-10.3); Carbon Dioxide 23.5 mmol/L (20.0-27.5); Globulin 1.6 g/dL (1.6-3.3); Non-African American GFR(CKD) 107.9 (60.0-200.0); Potassium 4.1 mmol/L (3.5-5.5); Total Bilirubin 2.8 mg/dL (0.30-1.20); Total Protein 5.5 g/dL (6.2-8.2)
[2021-07-23 10:06] LABS: Band Neutrophils % 2 %; Eosinophils # (M) 0.02 k/uL (0-0.7); Lymphocytes # (M) 0.92 k/uL (1.0-4.8); Monocytes # (M) 0.28 k/uL (0-1.0); Myelocytes # (M) 0.02 k/uL (0); Myelocytes % 1 %; Neutrophils % (M) 38 %; Nucleated Red Blood Cells 1 /100 WBC (0-0); Total Cells Counted 200
[2021-07-23 10:10] LABS: Polychromasia Present; Spherocytes Present
[2021-07-23 10:53] LABS: Bilirubin,Unconjugated 3.1 mg/dL (0.0-1.1); Total Bilirubin 3.9 mg/dL (0.2-1.3)
[2021-07-23] MEDS ORDERED: predniSONE 10 MG TAB PO SCH (11:00)
[2021-07-23] MEDS: PANTOPRAZOLE 40 MG TABLET PO SCH ×2 (11:07→17:38)
--- NOTE | 2021-07-23 11:10 | P.CONS ---
History of Present Illness - Reason for Consult Consult date: 07/23/21 Anemia Requesting physician: Reinaldo Tomas - Chief Complaint Symptomatic Anemia - History of Present Illness Mrs. Mayer is a very pleasant woman who presented originally with LUW abdominal pain. Work-up revealed pancytopenia and marked splenomegaly. Therefore she was referred for further evaluation to Dr. Parks. 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 NGS and Cytogenetics are still pending. She presented to follow-up on BM results yesterday in office and was found to have a hemoglobin of 5.2 therefore sent to emergency for further work- up and PRBC transfusion. 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 Case was discussed with patient, , and Dr. Zurita in detail. She is feeling ok, just short of breath with talking or moving. Review of Systems All systems: negative Constitutional: Reports as per HPI Past Medical History Past Medical History: GERD/Reflux, Thyroid Disorder Additional Past Medical History / Comment(s): very enlarged spleen discovered recently per pt, no recent colds or illnesses History of Any Multi-Drug Resistant Organisms: None Reported Past Surgical History: Hysterectomy, Orthopedic Surgery, Uterine Ablation Additional Past Surgical History / Comment(s): COLONOSCOPY X 3. RT BUNIONECTOMY Past Anesthesia/Blood Transfusion Reactions: Postoperative Nausea & Vomiting (PONV) Past Psychological History: No Psychological Hx Reported Smoking Status: Never smoker Past Alcohol Use History: Rare Past Drug Use History: None Reported - Past Family History Mother Family Medical History: Cancer Father Family Medical History: Cancer Sister(s) Family Medical History: Cancer Medications and Allergies Home Medications Medication Instructions Recorded Confirmed Type Levothyroxine Sodium [Synthroid] 75 mcg PO DAILY 11/19/17 07/22/21 History Pantoprazole Sodium [Protonix] 40 mg PO DAILY 11/19/17 07/22/21 History Ascorbic Acid [Vitamin C] 500 mg PO DAILY 07/15/21 07/22/21 History Cholecalciferol [Vitamin D3 (25 25 mcg PO DAILY 07/15/21 07/22/21 History Mcg = 1000 Iu)] Cyanocobalamin (Vitamin B-12) 1,000 mcg PO DAILY 07/15/21 07/22/21 History [Vitamin B-12] Allergies Allergy/AdvReac Type Severity Reaction Status Date / Time cefdinir [From Omnicef] Allergy Rash/Hives Verified 07/22/21 16:47 Penicillins Allergy Rash/Hives Verified 07/22/21 16:47 Sulfa (Sulfonamide Allergy Rash/Hives Verified 07/22/21 16:47 Antibiotics) Physical Exam Vitals: Vital Signs Temp Pulse Pulse Resp BP BP Pulse Ox 07/23/21 09:40 97 111/72 96 07/23/21 06:50 111 H 18 108/64 97 07/23/21 04:44 92 18 111/64 95 07/23/21 02:00 98 20 112/66 94 L 07/23/21 00:40 94 20 107/63 98 07/22/21 22:15 99 20 118/66 98 07/22/21 20:00 99.2 F 100 20 119/66 98 07/22/21 17:54 114 H 18 134/74 100 07/22/21 17:04 101 H 18 115/61 100 07/22/21 16:36 20 07/22/21 16:03 98.0 F 114 H 18 158/78 99 Intake and Output 07/22/21 07/23/21 07/23/21 22:59 06:59 14:59 Intake Total 480 Balance 480 Intake: Oral 480 Other: Voiding Method Toilet # Voids 1 Weight 88.451 kg - Constitutional General appearance: cooperative, no acute distress - EENT Eyes: EOMI ENT: NA/AT - Neck Neck: normal ROM - Respiratory Respiratory: bilateral: CTA - Cardiovascular Rhythm: regularly irregular - Gastrointestinal General gastrointestinal: soft, splenomegaly, tenderness - Integumentary Integumentary: pale - Neurologic Neurologic: CNII-XII intact - Musculoskeletal Musculoskeletal: generalized weakness, strength equal bilaterally - Psychiatric Psychiatric: A&O x's 3, appropriate affect, intact judgment & insight Results CBC & Chem 7: 07/23/21 05:34 07/23/21 05:34 Labs: Abnormal Lab Results - Last 24 Hours (Table) 07/22/21 07/22/21 07/22/21 Range/Units 18:57 19:11 19:11 WBC 2.1 L (3.8-10.6) k/uL RBC 1.67 L (3.80-5.40) m/uL Hgb 4.9 L* (11.4-16.0) gm/dL Hct 14.8 L* (34.0-46.0) % RDW 20.1 H (11.5-15.5) % Plt Count 148 L (150-450) k/uL Neutrophils # (Manual) 0.90 L (1.3-7.7) k/uL Lymphocytes # (Manual) 0.86 L (1.0-4.8) k/uL Myelocytes # (Manual) (0) k/uL Nucleated RBCs (0-0) /100 WBC ESR 129 H (0-20) mm/hr Haptoglobin (31.2-198.0) mg/dL Sodium (137-145) mmol/L Chloride (98-107) mmol/L BUN (9.0-27.0) mg/dL BUN/Creatinine Ratio (12.00-20.00) Ratio Glucose (74-99) mg/dL Calcium (8.7-10.3) mg/dL Transferrin 170.0 L (204.0-354.0) mg/dL Ferritin 317.0 H (10.0-291.0) ng/mL Total Bilirubin (0.2-1.3) mg/dL Unconjugated Bilirubin (0.0-1.1) mg/dL AST (14-36) U/L Lactate Dehydrogenase 4106 H (313-618) U/L C-Reactive Protein 2.2 H (<1.0) mg/dL Total Protein (6.3-8.2) g/dL Urine Blood (Negative) Crossmatch See Detail 07/22/21 07/22/21 07/22/21 Range/Units 19:11 19:11 20:03 WBC (3.8-10.6) k/uL RBC (3.80-5.40) m/uL Hgb (11.4-16.0) gm/dL Hct (34.0-46.0) % RDW (11.5-15.5) % Plt Count (150-450) k/uL Neutrophils # (Manual) (1.3-7.7) k/uL Lymphocytes # (Manual) (1.0-4.8) k/uL Myelocytes # (Manual) (0) k/uL Nucleated RBCs (0-0) /100 WBC ESR (0-20) mm/hr Haptoglobin <10.0 L (31.2-198.0) mg/dL Sodium 132 L (137-145) mmol/L Chloride 97 L (98-107) mmol/L BUN (9.0-27.0) mg/dL BUN/Creatinine Ratio (12.00-20.00) Ratio Glucose 116 H (74-99) mg/dL Calcium (8.7-10.3) mg/dL Transferrin (204.0-354.0) mg/dL Ferritin (10.0-291.0) ng/mL Total Bilirubin 3.2 H (0.2-1.3) mg/dL Unconjugated Bilirubin (0.0-1.1) mg/dL AST 58 H (14-36) U/L Lactate Dehydrogenase (313-618) U/L C-Reactive Protein (<1.0) mg/dL Total Protein 5.8 L (6.3-8.2) g/dL Urine Blood Small H (Negative) Crossmatch 07/23/21 07/23/21 07/23/21 Range/Units 05:34 05:34 10:14 WBC 2.0 L (3.8-10.6) k/uL RBC 1.62 L (3.80-5.40) m/uL Hgb 4.6 L* (11.4-16.0) gm/dL Hct 14.4 L* (34.0-46.0) % RDW 20.1 H (11.5-15.5) % Plt Count 144 L (150-450) k/uL Neutrophils # (Manual) 0.80 L (1.3-7.7) k/uL Lymphocytes # (Manual) 0.92 L (1.0-4.8) k/uL Myelocytes # (Manual) 0.02 H (0) k/uL Nucleated RBCs 1 H (0-0) /100 WBC ESR (0-20) mm/hr Haptoglobin (31.2-198.0) mg/dL Sodium (137-145) mmol/L Chloride (98-107) mmol/L BUN 6.5 L (9.0-27.0) mg/dL BUN/Creatinine Ratio 11.64 L (12.00-20.00) Ratio Glucose (74-99) mg/dL Calcium 8.6 L (8.7-10.3) mg/dL Transferrin (204.0-354.0) mg/dL Ferritin (10.0-291.0) ng/mL Total Bilirubin 2.80 H 3.9 H (0.2-1.3) mg/dL Unconjugated Bilirubin 3.1 H (0.0-1.1) mg/dL AST 63 H (14-36) U/L Lactate Dehydrogenase (313-618) U/L C-Reactive Protein (<1.0) mg/dL Total Protein 5.5 L (6.3-8.2) g/dL Urine Blood (Negative) Crossmatch Microbiology - Last 24 Hours (Table) 07/22/21 20:03 Urine Culture - Preliminary Urine,Voided Assessment and Plan (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 Rose Llamas [facility], an appointment has been scheduled for her next week. - Prednisone 1mg/k in two divided dosages initiated, PPI, Folic Acid - Monitor CBC closely and transfuse hemoglobin less than 6 Current Visit: Yes Status: Acute Code(s): D58.9 - HEREDITARY HEMOLYTIC ANEMIA, UNSPECIFIED SNOMED Code(s): 14077439 (2) Leukopenia Current Visit: Yes Status: Acute Code(s): D72.819 - DECREASED WHITE BLOOD CELL COUNT, UNSPECIFIED SNOMED Code(s): 52544036 (3) Splenomegaly Current Visit: Yes Status: Acute Code(s): R16.1 - SPLENOMEGALY, NOT ELSEWHERE CLASSIFIED SNOMED Code(s): 74925046 Time with Patient: Greater than 30
--- NOTE | 2021-07-23 11:18 | US ---
EXAMINATION TYPE: US liver doppler DATE OF EXAM: 07/23/2021 COMPARISON: US & CT CLINICAL HISTO RY: portal vein thrombosis, splenic vein thrombosis. Pt in for low hemoglobin, known enlarged spleen EXAM MEASUREMENTS: Liver Length: 24 cm Gallbladder Wall: 0.2 cm CBD: 0.2 cm Right Kidney: 11.6 x 4.7 x 5.0 cm RUQ ABDOMINAL ULTRASOUND Pancreas: wnl, tail obscured by enlarged spleen Liver: Enlarged Gallbladder: two mobile gallstones Evidence for sonographic Brown's sign: No CBD: wnl Spleen: Enlarged- 28 cm. Normal less than 12.5 cm. Right Kidney: wnl Ascites noted? No LIVER DOPPLER ULTRASOUND Portal vein: Patent Main Portal Vein diameter: 17 mm Flow direction: Hepatopetal Color flow patency seen within the main portal vein: Yes Main portal vein shows a monophasic waveform: Yes Color flow patency seen within the right portal vein: Yes Right portal vein shows a monophasic waveform: Yes Color flow patency seen within the left portal vein: Yes Left portal vein shows a monophasic waveform: Yes Hepatic Artery: wnl IVC/Hepatic Veins: wnl Color flow patency seen within the IVC: Yes IVC shows a triphasic waveform: Yes Color flow patency seen within the right hepatic vein: Yes Color flow patency seen within the middle hepatic vein: Yes Color flow patency seen within the left hepatic vein: Yes Splenic Vein: Patent Splenic vein diameter: 18 mm Color flow patency seen within the splenic vein: Yes IMPRESSION: 1. Vascularity of the liver appears normal. 2. Cholelithiasis. 3. Hepatosplenomegaly. 4. No portal vein or splenic vein thrombosis identified.
[2021-07-23 11:20] LABS: Reticulocyte % 9.5 % (0.5-2.0)
--- NOTE | 2021-07-23 13:40 | CDI ---
Documentation Clarification Form Date: 07/23/2021 01:30:10 PM From: Melissa Leonardo CCS, CCDS Admit Date: 07/22/2021 04:30:00 PM Patient Name: Xiomy Mayer Visit Number: [id number] Discharge Date: ATTENTION: The Clinical Documentation Specialists (CDI) and [facility] Coding Staff appreciate your assistance in clarifying documentation. Please respond to the clarification below the line at the bottom and electronically sign. The CDI & [facility] Coding staff will review the response and follow-up if needed. Please note: Queries are made part of the Legal Health Record. If you have any questions, please contact the author of this message via ITS. Dr. Juanis Parks: Your patient has abnormal lab values per the Lab Reports on 07/22 & 07/23. Per H/P 07/22: Leukopenia is documented. Per the 07/23 Hematology Consult: Hemolytic anemia (Hereditary hemolytic anemia nos) Please clarify if there is an additional diagnosis and/or clinical significance related to this value History/Risk Factors per the 07/22 H/P: Splenomegaly, newly diagnosed; GERD, Hypothyroidism, Obesity w/BMI:30.5. Clinical indicators: Presented to the ED on 07/22, sent by Oncologist, Dr. Parks for blood transfusion due to abnormal lab values. Hgb today was 5.2, recently diagnosed with splenomegaly possibly related to anemia. Admit with Anemia, Splenomegaly. 07/22 LABs: WBC 2.1, RBC 1.67, gb 4.9, Hct 14.8, Pl Ct 148. 07/23 LABs: WBC 2.0, RBC 1.62, Hgb 4.6, Hct 14.4, Pl Ct 144 Treatment: Typed & Crossed, Antibody Identification, Blood culture, Urine Culture, Home meds: po Protonix, Vit D3, Vit B12, Prednisone, Folic Acid. Is there an additional diagnosis and/or clinical significance related to the above lab result/information? [ ] Abnormal Lab Values indicate, please specify: [ ] No additional diagnosis/Not clinically significant [ ] Other, please specify [ ] Unable to determine (Template Last Revised: August 2020) MTDD
--- NOTE | 2021-07-23 13:59 | PN ---
PROGRESS NOTE DATE OF SERVICE: 07/23/2021 This 50-year-old woman was admitted with significant anemia also had splenomegaly. Hematology/Oncology following the patient closely. Hemoglobin less than 5 yesterday. The patient is recommended irradiate transfusion which is being arranged at this time. Hematology/Oncology following the patient closely at this time. Possible hemolysis also being considered at this time. The patient's had D-dimer elevated to 2.01. Otherwise, total bilirubin is 3.1 and mostly unconjugated. Past medical history reviewed. Retic count is also elevated. REVIEW OF SYSTEMS: Cardiovascular: No angina or palpitations. Respiratory: As mentioned earlier. GI: As mentioned earlier. : As mentioned earlier. Nervous system: No numbness or weakness. CURRENT MEDICATIONS: Reviewed and include: Vitamin D2, vitamin B12, folic acid, Synthroid, Narcan, Protonix, prednisone. PHYSICAL EXAM: Patient is alert, oriented x3. Pulse is 97, blood pressure 120/72, respiration 18, temperature is normal. Pulse ox 97 percent on room air. HEENT: Conjunctivae pale. Neck: No JVD. Cardiovascular: S1, S2. Abdomen: Soft. Splenomegaly. Nervous system: No focal deficits. LABS: WBC 2, hemoglobin 4.6. Other labs are noted. ASSESSMENT: 1. Anemia with splenomegaly, possible myelodysplastic syndrome, possible hemolytic anemia with severe symptomatic anemia. 2. Portal vein thrombosis ruled out. 3. Leukopenia. 4. Asymptomatic cholelithiasis. 5. History of gastroesophageal reflux disease. 6. Hypothyroidism. 7. History of hysterectomy. 8. History of uterine ablation. 9. History of colonoscopy. 10.Obesity with body mass index of 30.5. 11.FULL CODE. RECOMMENDATIONS AND DISCUSSION: Continue monitoring, symptomatic treatment. Otherwise, at this time, I recommend transfusion per Hematology/ Oncology. Further evaluation. Prognosis guarded because of multiple complex medical issues. The liver ultrasound was done with Doppler which showed normal vascularity, cholelithiasis, hepatosplenomegaly. No portal splenic vein thrombosis are noted. Once again, the prognosis is guarded. Further recommendations to follow. MMODL / IJN: [id number] /
[2021-07-23] MEDS ORDERED: RX INFO: IV CONTRAST WAS GIVEN 1 EACH MISC MISCELLANE PRN (16:41)
[2021-07-23] MEDS ORDERED: FUROSEMIDE 10 MG/ML 2 ML VIAL IV ONE (17:00)
[2021-07-23 19:57] LABS: Appearance,Urine Clear (Clear); Bilirubin,Urine Negative (Negative); Blood,Urine Trace (Negative); Color,Urine Light Yellow; Glucose,Urine (UA) Negative (Negative); Ketones,Urine Negative (Negative); Leukocyte Esterase,Urine Negative (Negative); Mucus,Urine Rare /hpf; Nitrite,Urine Negative (Negative); PH, Urine 5.5 (5.0-8.0); Protein,Urine Negative (Negative); RBC,Urine <1 /hpf (0-5); Specific Gravity,Urine 1.003 (1.001-1.035); Squamous Epithelial Cell,Urine <1 /hpf (0-4); Urobilinogen,Urine <2.0 mg/dL (<2.0); WBC,Urine 1 /hpf (0-5)
[2021-07-23 21:31] LABS: % Iron Saturation 41.67 (12.00-45.00); Iron 98 ug/dL (50-170); Total Iron Binding Capacity 235 ug/dL (228-460)
[2021-07-23 21:49] LABS: Rheumatoid Factor, Qnt <10 IU/mL (0-15)
--- NOTE | 2021-07-23 22:29 | CT ---
EXAMINATION TYPE: CT chest w con DATE OF EXAM: 07/23/2021 COMPARISON: 07/02/2021 HISTORY: R/o adenopathy CT DLP: 215.80 mGycm Automated exposure control for dose reduction was used. CONTRAST: Performed with IV Contrast, patient injected with 100 mL of Isovue 300. Images obtained from the thoracic inlet to the diaphragm with IV contrast. Lungs are clear of infiltrate. There is no pleural effusion. Heart is enlarged. There is no pericardi al effusion. There are no hilar masses. There are a few paratracheal lymph nodes measuring up to 1 cm . There is no evidence of any significant adenopathy. Thoracic aorta is intact. There is no dissectio n. There is a 4 cm aneurysm of the ascending aorta. The upper abdominal soft tissues show markedly en larged spleen. The thoracic spine is intact. There is no compression fracture. Sternum is intact. The ribs are intac t. IMPRESSION: Cardiomegaly. Mild thoracic aortic aneurysm. Massive splenomegaly. No acute lung disease. No evidence of any mediastinal adenopathy. Ascending aorta appears increased slightly compared to recent CT scan .
[2021-07-23] MEDS: predniSONE 20 MG TAB PO SCH (22:48)
[2021-07-24] MEDS: LEVOTHYROXINE 75 MCG TAB PO SCH (05:11)
[2021-07-24 06:01] LABS: Anisocytosis Slight; Basophils % (A) 0 %; Eosinophils % (A) 0 %; Hypochromasia Moderate; Lymphocytes # (A) 0.6 k/uL (1.0-4.8); Lymphocytes % (A) 28 %; MCH 29.6 pg (25.0-35.0); MCHC 32.5 g/dL (31.0-37.0); MCV 91.2 fL (80.0-100.0); Mean Platelet Volume 7.6; Monocytes # (A) 0.1 k/uL (0-1.0); Monocytes % (A) 6 %; Neutrophils # (A) 1.5 k/uL (1.3-7.7); Neutrophils % (A) 64 %; Platelet Count 157 k/uL (150-450); Poikilocytosis Moderate; RBC 2.41 m/uL (3.80-5.40); RDW 19.3 % (11.5-15.5); WBC 2.3 k/uL (3.8-10.6)
[2021-07-24 06:14] LABS: HGB 7.1 gm/dL (11.4-16.0)
[2021-07-24] MEDS: PANTOPRAZOLE 40 MG TABLET PO SCH ×2 (08:23→17:12)
[2021-07-24] MEDS: FOLIC ACID 1 MG TAB PO SCH (08:23)
[2021-07-24] MEDS: CYANOCOBALAMIN 500 MCG TAB PO SCH (08:23)
[2021-07-24] MEDS: predniSONE 20 MG TAB PO SCH ×2 (08:23→20:56)
[2021-07-24] MEDS: CHOLECALCIFEROL 25 MCG (1000 IU) TABLET PO SCH (08:23)
[2021-07-24 09:45] LABS: African American GFR (CKD) 122.3 (60.0-200.0); Albumin 4.2 g/dL (3.8-4.9); Albumin/Globulin Ratio 2.33 (1.60-3.17); Anion Gap 13.2 mmol/L (10.00-18.00); BUN/Creat Ratio 16.17 Ratio (12.00-20.00); Blood Urea Nitrogen 9.7 mg/dL (9.0-27.0); Calcium 8.8 mg/dL (8.7-10.3); Carbon Dioxide 23.8 mmol/L (20.0-27.5); Globulin 1.8 g/dL (1.6-3.3); Non-African American GFR(CKD) 105.5 (60.0-200.0); Potassium 4.3 mmol/L (3.5-5.5); Total Bilirubin 2.7 mg/dL (0.30-1.20)
[2021-07-24 12:52] VITALS: BMI 30.5
--- NOTE | 2021-07-24 15:18 | P.PN ---
Subjective Progress Note Date: 07/24/21 Principal diagnosis: Hemolytic Anemia and Splenomegaly. Hemoglobin Improved and Stable today Objective - Vital Signs Vital signs: Vital Signs Temp 97.8 F 07/24/21 05:09 Pulse 86 07/24/21 05:09 Resp 16 07/24/21 05:09 BP 107/69 07/24/21 05:09 Pulse Ox 98 07/24/21 05:09 Intake & Output 07/23/21 07/24/21 07/24/21 18:59 06:59 18:59 Intake Total 810 310 Balance 810 310 Intake: Oral 500 Blood Product 310 310 Rc Irr As1 Unit 310 [id number] Rc Irr As1 Unit 0 310 [id number] Other: Voiding Method Toilet Toilet # Voids 1 2 - Exam Alert and oriented NAD PERRL Lungs: CTA HR: RRR Abdomen: Splenogaly, mild tenderness Ext: Chronic increased width, no fluid edema Calm and Coroperative. - Labs CBC & Chem 7: 07/24/21 05:18 07/24/21 05:18 Labs: Abnormal Lab Results - Last 24 Hours (Table) 07/22/21 07/23/21 07/23/21 Range/Units 18:57 05:34 05:34 WBC 2.0 L (3.8-10.6) k/uL RBC 1.62 L (3.80-5.40) m/uL Hgb 4.6 L* (11.4-16.0) gm/dL Hct 14.4 L* (34.0-46.0) % RDW 20.1 H (11.5-15.5) % Plt Count 144 L (150-450) k/uL Neutrophils # (Manual) 0.80 L (1.3-7.7) k/uL Lymphocytes # (1.0-4.8) k/uL Lymphocytes # (Manual) 0.92 L (1.0-4.8) k/uL Myelocytes # (Manual) 0.02 H (0) k/uL Nucleated RBCs 1 H (0-0) /100 WBC ESR (0-20) mm/hr Retic Count (0.5-2.0) % Haptoglobin (31.2-198.0) mg/dL D-Dimer (<0.60) mg/L FEU BUN 6.5 L (9.0-27.0) mg/dL BUN/Creatinine Ratio 11.64 L (12.00-20.00) Ratio Uric Acid (2.9-7.7) mg/dL Calcium 8.6 L (8.7-10.3) mg/dL Transferrin (204.0-354.0) mg/dL Ferritin (10.0-291.0) ng/mL Total Bilirubin 2.80 H (0.30-1.20) mg/dL Unconjugated Bilirubin (0.0-1.1) mg/dL AST 63 H (13-35) U/L Lactate Dehydrogenase (313-618) U/L Total Protein 5.5 L (6.2-8.2) g/dL Urine Blood (Negative) Urine Mucus (None) /hpf Crossmatch See Detail 07/23/21 07/23/21 07/23/21 Range/Units 05:34 05:34 05:34 WBC (3.8-10.6) k/uL RBC (3.80-5.40) m/uL Hgb (11.4-16.0) gm/dL Hct (34.0-46.0) % RDW (11.5-15.5) % Plt Count (150-450) k/uL Neutrophils # (Manual) (1.3-7.7) k/uL Lymphocytes # (1.0-4.8) k/uL Lymphocytes # (Manual) (1.0-4.8) k/uL Myelocytes # (Manual) (0) k/uL Nucleated RBCs (0-0) /100 WBC ESR >140 H (0-20) mm/hr Retic Count 9.5 H (0.5-2.0) % Haptoglobin (31.2-198.0) mg/dL D-Dimer (<0.60) mg/L FEU BUN (9.0-27.0) mg/dL BUN/Creatinine Ratio (12.00-20.00) Ratio Uric Acid (2.9-7.7) mg/dL Calcium (8.7-10.3) mg/dL Transferrin 168.0 L (204.0-354.0) mg/dL Ferritin 333.0 H (10.0-291.0) ng/mL Total Bilirubin (0.30-1.20) mg/dL Unconjugated Bilirubin (0.0-1.1) mg/dL AST (13-35) U/L Lactate Dehydrogenase (313-618) U/L Total Protein (6.2-8.2) g/dL Urine Blood (Negative) Urine Mucus (None) /hpf Crossmatch 07/23/21 07/23/21 07/23/21 Range/Units 05:34 05:34 10:14 WBC (3.8-10.6) k/uL RBC (3.80-5.40) m/uL Hgb (11.4-16.0) gm/dL Hct (34.0-46.0) % RDW (11.5-15.5) % Plt Count (150-450) k/uL Neutrophils # (Manual) (1.3-7.7) k/uL Lymphocytes # (1.0-4.8) k/uL Lymphocytes # (Manual) (1.0-4.8) k/uL Myelocytes # (Manual) (0) k/uL Nucleated RBCs (0-0) /100 WBC ESR (0-20) mm/hr Retic Count (0.5-2.0) % Haptoglobin <10.0 L (31.2-198.0) mg/dL D-Dimer (<0.60) mg/L FEU BUN (9.0-27.0) mg/dL BUN/Creatinine Ratio (12.00-20.00) Ratio Uric Acid (2.9-7.7) mg/dL Calcium (8.7-10.3) mg/dL Transferrin (204.0-354.0) mg/dL Ferritin (10.0-291.0) ng/mL Total Bilirubin 3.9 H (0.30-1.20) mg/dL Unconjugated Bilirubin 3.1 H (0.0-1.1) mg/dL AST (13-35) U/L Lactate Dehydrogenase 3884 H (313-618) U/L Total Protein (6.2-8.2) g/dL Urine Blood (Negative) Urine Mucus (None) /hpf Crossmatch 07/23/21 07/23/21 07/23/21 Range/Units 11:15 11:15 19:45 WBC (3.8-10.6) k/uL RBC (3.80-5.40) m/uL Hgb (11.4-16.0) gm/dL Hct (34.0-46.0) % RDW (11.5-15.5) % Plt Count (150-450) k/uL Neutrophils # (Manual) (1.3-7.7) k/uL Lymphocytes # (1.0-4.8) k/uL Lymphocytes # (Manual) (1.0-4.8) k/uL Myelocytes # (Manual) (0) k/uL Nucleated RBCs (0-0) /100 WBC ESR (0-20) mm/hr Retic Count (0.5-2.0) % Haptoglobin (31.2-198.0) mg/dL D-Dimer 2.01 H (<0.60) mg/L FEU BUN (9.0-27.0) mg/dL BUN/Creatinine Ratio (12.00-20.00) Ratio Uric Acid 8.2 H (2.9-7.7) mg/dL Calcium (8.7-10.3) mg/dL Transferrin (204.0-354.0) mg/dL Ferritin (10.0-291.0) ng/mL Total Bilirubin (0.30-1.20) mg/dL Unconjugated Bilirubin (0.0-1.1) mg/dL AST (13-35) U/L Lactate Dehydrogenase (313-618) U/L Total Protein (6.2-8.2) g/dL Urine Blood Trace H (Negative) Urine Mucus Rare H (None) /hpf Crossmatch 07/24/21 Range/Units 05:18 WBC 2.3 L (3.8-10.6) k/uL RBC 2.41 L (3.80-5.40) m/uL Hgb 7.1 L D (11.4-16.0) gm/dL Hct 22.0 L (34.0-46.0) % RDW 19.3 H (11.5-15.5) % Plt Count (150-450) k/uL Neutrophils # (Manual) (1.3-7.7) k/uL Lymphocytes # 0.6 L (1.0-4.8) k/uL Lymphocytes # (Manual) (1.0-4.8) k/uL Myelocytes # (Manual) (0) k/uL Nucleated RBCs (0-0) /100 WBC ESR (0-20) mm/hr Retic Count (0.5-2.0) % Haptoglobin (31.2-198.0) mg/dL D-Dimer (<0.60) mg/L FEU BUN (9.0-27.0) mg/dL BUN/Creatinine Ratio (12.00-20.00) Ratio Uric Acid (2.9-7.7) mg/dL Calcium (8.7-10.3) mg/dL Transferrin (204.0-354.0) mg/dL Ferritin (10.0-291.0) ng/mL Total Bilirubin (0.30-1.20) mg/dL Unconjugated Bilirubin (0.0-1.1) mg/dL AST (13-35) U/L Lactate Dehydrogenase (313-618) U/L Total Protein (6.2-8.2) g/dL Urine Blood (Negative) Urine Mucus (None) /hpf Crossmatch Microbiology - Last 24 Hours (Table) 07/22/21 19:11 Blood Culture - Preliminary Blood No Growth after 24 hours 07/22/21 20:03 Urine Culture - Preliminary Urine,Voided Assessment and Plan (1) Hemolytic anemia Narrative/Plan: - Secondary to warm antibody which is likely a result from underlying lymphoproliferative disorder, awaiting final cytogenetics and NGS on Bone Marrow and patient has been referred to Dr. Rose Llamas [place], an appointment has been scheduled for her next week. - continue in prednisone, PPI, Folic Acid - Monitor CBC closely and transfuse hemoglobin less than 6 Will plan to monitor another night to ensure patients CBC remains stable CT of the chest without any noted adenopathy Dr. Ahamdi discussed plan for second opinion and further splenic testing in detail. She was also educated on monitoring abdomen and skin closely for any sudden onset bruising, new type of pain, or bleeding. Patient stated understanding Physician attest: I have completed the full history an dphysical and agree with above dictation, dictated as a scribe. Current Visit: Yes Status: Acute Code(s): D58.9 - HEREDITARY HEMOLYTIC ANEMIA, UNSPECIFIED SNOMED Code(s): 22242886 (2) Leukopenia Current Visit: Yes Status: Acute Code(s): D72.819 - DECREASED WHITE BLOOD CELL COUNT, UNSPECIFIED SNOMED Code(s): 13995897 (3) Splenomegaly Current Visit: Yes Status: Acute Code(s): R16.1 - SPLENOMEGALY, NOT ELSEWHERE CLASSIFIED SNOMED Code(s): 04906455
--- NOTE | 2021-07-24 17:30 | PN ---
PROGRESS NOTE DATE OF SERVICE: 07/24/2021 This 50-year-old woman was admitted with hemolytic anemia exacerbation, is being closely monitored. After two units of transfusion the hemoglobin is improved to 7.1. Patient is feeling much better. No chest pain. No palpitations. No fever. PHYSICAL EXAMINATION: Alert and oriented x3. Pulse 87, blood pressure 130/74, respiration 18, temperature 98 degrees, pulse ox 98% on room. HEENT: Conjunctivae normal. Oral mucosa moist. NECK: No jugular venous distention. No lymph node enlargement. CARDIOVASCULAR: S1, S2, muffled. No S3, no S4, RESPIRATORY: Diminished breath sounds at the bases. NO rhonchi, no crackles. ABDOMEN: Soft. NERVOUS SYSTEM: No focal deficits. LABS: WBC 2.8, hemoglobin 7.1. ASSESSMENT: 1. 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 2. Portal vein thrombosis ruled out. 3. Leukopenia. 4. Asymptomatic cholelithiasis possibly secondary to hemolytic anemia. 5. History of GERD. 6. Hypothyroidism. 7. History of hysterectomy. 8. History uterine ablation. 9. History of colonoscopy. 10.Obesity with body mass index of 30.5. 11.FULL CODE. RECOMMENDATIONS: Recommend to continue current management and symptomatic treatment. Repeat labs in the morning. Otherwise, closely follow with Hematology/Oncology. The patient is started on oral prednisone. Guarded prognosis because of multiple complex medical issues and further recommendations to follow. The rest of the recommendations and evaluation per Hematology/Oncology. The patient has an outpatient appointment with primary Hematology/Oncologist next according to her. MMODL / IJN: [id number] /
[2021-07-25] MEDS: LEVOTHYROXINE 75 MCG TAB PO SCH (05:26)
[2021-07-25 06:26] LABS: Vit B1(Thiamine) 25 ug/L (38-122)
[2021-07-25 07:08] LABS: African American GFR (CKD) >90 (>60 ml/min/1.73 sqM); Anion Gap 3 mmol/L; Blood Urea Nitrogen 16 mg/dL (7-17); Calcium 8.9 mg/dL (8.4-10.2); Carbon Dioxide 29 mmol/L (22-30); Chloride 105 mmol/L (98-107); Glucose 139 mg/dL (74-99); Non-African American GFR(CKD) >90 (>60 ml/min/1.73 sqM); Potassium 4.7 mmol/L (3.5-5.1); Sodium 137 mmol/L (137-145)
[2021-07-25 07:44] LABS: Anisocytosis Moderate; Basophils % (A) 0 %; Eosinophils % (A) 0 %; Hypochromasia Marked; Lymphocytes # (A) 0.6 k/uL (1.0-4.8); Lymphocytes % (A) 24 %; MCH 29.2 pg (25.0-35.0); MCHC 30.8 g/dL (31.0-37.0); MCV 94.8 fL (80.0-100.0); Macrocytosis Slight; Mean Platelet Volume 7.8; Monocytes # (A) 0.1 k/uL (0-1.0); Monocytes % (A) 5 %; Neutrophils # (A) 1.8 k/uL (1.3-7.7); Neutrophils % (A) 68 %; Platelet Count 199 k/uL (150-450); Poikilocytosis Moderate; RBC 2.31 m/uL (3.80-5.40); RDW 21.5 % (11.5-15.5); WBC 2.6 k/uL (3.8-10.6)
[2021-07-25] MEDS: CHOLECALCIFEROL 25 MCG (1000 IU) TABLET PO SCH (07:49)
[2021-07-25] MEDS: CYANOCOBALAMIN 500 MCG TAB PO SCH (07:49)
[2021-07-25] MEDS: PANTOPRAZOLE 40 MG TABLET PO SCH ×2 (07:49→17:09)
[2021-07-25] MEDS: predniSONE 20 MG TAB PO SCH ×2 (07:49→20:44)
[2021-07-25] MEDS: FOLIC ACID 1 MG TAB PO SCH (07:49)
[2021-07-25 08:19] LABS: HGB 6.8 gm/dL (11.4-16.0)
[2021-07-25 11:37] LABS: Total Bilirubin 2.7 mg/dL (0.2-1.3)
[2021-07-25 11:59] LABS: Polychromasia Present
[2021-07-25 12:35] LABS: Glucose-6-Phosphate Dehydrogen 20.7 U/g Hgb (7.0-20.5)
[2021-07-25 13:08] LABS: Reticulocyte % 10.1 % (0.5-2.0)
[2021-07-25 13:49] VITALS: RESP 16
--- NOTE | 2021-07-25 14:05 | P.PN ---
Subjective Progress Note Date: 07/25/21 Principal diagnosis: Hemolytic Anemia and Splenomegaly. Hemoglobin 6.8, and evidence of persistent hemolysis evidenced. Objective - Vital Signs Vital signs: Vital Signs Temp 98.9 F 07/25/21 13:00 Pulse 78 07/25/21 13:00 Resp 16 07/25/21 13:00 BP 111/52 07/25/21 13:00 Pulse Ox 100 07/25/21 13:00 Intake & Output 07/24/21 07/25/21 07/25/21 18:59 06:59 18:59 Intake Total 1999 Balance 1999 Weight 88.451 kg Intake: Oral 1999 Other: Voiding Method Toilet Toilet Toilet # Voids 2 3 1 - Exam Alert and oriented NAD PERRL Lungs: CTA HR: RRR Abdomen: Splenogaly, mild tenderness Ext: Chronic increased width, no fluid edema Calm and Coroperative. - Labs CBC & Chem 7: 07/25/21 05:27 07/25/21 05:27 Labs: Abnormal Lab Results - Last 24 Hours (Table) 07/23/21 07/23/21 07/25/21 Range/Units 05:34 11:15 05:27 WBC 2.6 L (3.8-10.6) k/uL RBC 2.31 L (3.80-5.40) m/uL Hgb 6.8 L* (11.4-16.0) gm/dL Hct 22.0 L (34.0-46.0) % MCHC 30.8 L (31.0-37.0) g/dL RDW 21.5 H (11.5-15.5) % Lymphocytes # 0.6 L (1.0-4.8) k/uL Pathologist Review See comment A Retic Count (0.5-2.0) % G6PD 20.7 H (7.0-20.5) U/g Hgb Glucose (74-99) mg/dL Total Bilirubin (0.2-1.3) mg/dL Unconjugated Bilirubin (0.0-1.1) mg/dL Lactate Dehydrogenase (313-618) U/L Vitamin B1 25 L (38-122) ug/L 07/25/21 07/25/21 07/25/21 Range/Units 05:27 05:27 05:27 WBC (3.8-10.6) k/uL RBC (3.80-5.40) m/uL Hgb (11.4-16.0) gm/dL Hct (34.0-46.0) % MCHC (31.0-37.0) g/dL RDW (11.5-15.5) % Lymphocytes # (1.0-4.8) k/uL Pathologist Review Retic Count 10.1 H (0.5-2.0) % G6PD (7.0-20.5) U/g Hgb Glucose 139 H (74-99) mg/dL Total Bilirubin (0.2-1.3) mg/dL Unconjugated Bilirubin (0.0-1.1) mg/dL Lactate Dehydrogenase 3696 H (313-618) U/L Vitamin B1 (38-122) ug/L 07/25/21 Range/Units 05:27 WBC (3.8-10.6) k/uL RBC (3.80-5.40) m/uL Hgb (11.4-16.0) gm/dL Hct (34.0-46.0) % MCHC (31.0-37.0) g/dL RDW (11.5-15.5) % Lymphocytes # (1.0-4.8) k/uL Pathologist Review Retic Count (0.5-2.0) % G6PD (7.0-20.5) U/g Hgb Glucose (74-99) mg/dL Total Bilirubin 2.7 H (0.2-1.3) mg/dL Unconjugated Bilirubin 2.0 H (0.0-1.1) mg/dL Lactate Dehydrogenase (313-618) U/L Vitamin B1 (38-122) ug/L Microbiology - Last 24 Hours (Table) 07/22/21 19:11 Blood Culture - Preliminary Blood No Growth after 48 hours 07/22/21 20:03 Urine Culture - Final Urine,Voided Strep agalactiae - (group b) Assessment and Plan (1) Hemolytic anemia Narrative/Plan: - Secondary to warm antibody which is likely a result from underlying lymphoproliferative disorder, awaiting final cytogenetics and NGS on Bone Marrow and patient has been referred to Dr. Rose Llamas [facility], an appointment has been scheduled for her next week. - continue in prednisone, PPI, Folic Acid - Monitor CBC closely and transfuse hemoglobin less than 6 Will plan to monitor another night to ensure patients CBC remains stable CT of the chest without any noted adenopathy Hemoglobin 6.8 today, LDH remains elevated, Retics are slightly higher and ind irect is same. Recommend keeping another day to ensure hemolysis not re-ramping. Current Visit: Yes Status: Acute Code(s): D58.9 - HEREDITARY HEMOLYTIC ANEMIA, UNSPECIFIED SNOMED Code(s): 50848019 (2) Leukopenia Current Visit: Yes Status: Acute Code(s): D72.819 - DECREASED WHITE BLOOD CELL COUNT, UNSPECIFIED SNOMED Code(s): 51832908 (3) Splenomegaly Current Visit: Yes Status: Acute Code(s): R16.1 - SPLENOMEGALY, NOT ELSEWHERE CLASSIFIED SNOMED Code(s): 35421069 Plan: Physician attest: I have completed the full history an physical and agree with above dictation, dictated as a scribe.
--- NOTE | 2021-07-25 15:34 | PN ---
PROGRESS NOTE DATE OF SERVICE: 07/25/2021 This 50-year-old woman who was admitted with anemia and splenomegaly also was noted to have autoimmune hemolytic anemia. No chest pain. No palpitations. No fever. Hemoglobin has come up to 6.8 today. PHYSICAL EXAMINATION: Alert and oriented x3. Pulse 78, blood pressure 111/52, respiration 16, temperature 98.9, pulse ox 100% on room air. HEENT: Conjunctivae pale. NECK: No jugular venous distention. CARDIOVASCULAR: S1, S2 muffled. RESPIRATION: Breath sounds diminished at the bases. ABDOMEN: Soft. Splenomegaly. NERVOUS SYSTEM: No focal deficit. LAB STUDIES: WBC 2.6. Hemoglobin 6.8. ASSESSMENT: 1. Anemia with splenomegaly, possibly warm autoantibody, autoimmune hemolytic anemia, possible myelodysplastic syndrome with acute symptomatic anemia, status post transfusion x2. 2. Leukopenia. 3. Asymptomatic cholelithiasis, possibly secondary to hemolytic anemia. 4. History of gastroesophageal reflux disease. 5. Hypothyroidism. 6. History hysterectomy. 7. History of uterine ablation. 8. History of colonoscopy. 9. Obesity with body mass index 30.5. 10.FULL CODE. RECOMMENDATIONS AND DISCUSSION: I recommend to continue current medications, continue with the monitoring, symptomatic treatment. Follow closely with Hematology/Oncology, who would like to keep the patient for one more day. Continue to monitor. Prognosis guarded. Further recommendations to follow. Repeat CBC in the morning. MMODL / IJN: [id number] /
[2021-07-26] MEDS: LEVOTHYROXINE 75 MCG TAB PO SCH (06:11)
[2021-07-26 06:59] LABS: Anisocytosis Moderate; Basophils % (A) 0 %; Eosinophils % (A) 0 %; HCT 22.5 % (34.0-46.0); HGB 7.2 gm/dL (11.4-16.0); Hypochromasia Marked; Lymphocytes # (A) 0.6 k/uL (1.0-4.8); Lymphocytes % (A) 24 %; MCH 29.9 pg (25.0-35.0); MCHC 31.9 g/dL (31.0-37.0); MCV 93.7 fL (80.0-100.0); Macrocytosis Slight; Mean Platelet Volume 7.5; Monocytes # (A) 0.1 k/uL (0-1.0); Monocytes % (A) 5 %; Neutrophils # (A) 1.6 k/uL (1.3-7.7); Neutrophils % (A) 68 %; Platelet Count 202 k/uL (150-450); Poikilocytosis Moderate; RDW 21.9 % (11.5-15.5); Reticulocyte % 12.8 % (0.5-2.0); WBC 2.3 k/uL (3.8-10.6)
[2021-07-26 07:32] LABS: ALT 14 U/L (4-34); AST 34 U/L (14-36); African American GFR (CKD) >90 (>60 ml/min/1.73 sqM); Albumin 3.8 g/dL (3.5-5.0); Albumin/Globulin Ratio 1.6; Alkaline Phosphatase 51 U/L (38-126); Anion Gap 2 mmol/L; Blood Urea Nitrogen 18 mg/dL (7-17); Carbon Dioxide 28 mmol/L (22-30); Chloride 107 mmol/L (98-107); Globulin 2.4 g/dL; Glucose 145 mg/dL (74-99); Non-African American GFR(CKD) >90 (>60 ml/min/1.73 sqM); Potassium 5.4 mmol/L (3.5-5.1); Sodium 137 mmol/L (137-145); Total Bilirubin 2.7 mg/dL (0.2-1.3); Total Protein 6.2 g/dL (6.3-8.2)
[2021-07-26 07:41] LABS: LDH 3295 U/L (313-618)
[2021-07-26] MEDS: CYANOCOBALAMIN 500 MCG TAB PO SCH (08:13)
[2021-07-26] MEDS: CHOLECALCIFEROL 25 MCG (1000 IU) TABLET PO SCH (08:13)
[2021-07-26] MEDS: predniSONE 20 MG TAB PO SCH ×2 (08:13→19:26)
[2021-07-26] MEDS: FOLIC ACID 1 MG TAB PO SCH (08:13)
[2021-07-26] MEDS: PANTOPRAZOLE 40 MG TABLET PO SCH ×2 (08:13→17:43)
[2021-07-26] MEDS ORDERED: THIAMINE 100 MG TAB PO SCH (09:00)
[2021-07-26 09:30] LABS: Polychromasia Present
[2021-07-26 09:54] LABS: Mixed Population RBC Present
[2021-07-26 14:59] VITALS: BP 121/66; PULSE 78; TEMP 97.9
--- NOTE | 2021-07-27 00:48 | P.PN ---
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 She was sent from Dr. Parks office for low hemoglobin. Her hemoglobin on admission was 4.9 and 4.6, she received 2 units of blood transfusion and her hemoglobin improved to 6.8 yesterday and repeat hemoglobin today was 7.2. She is also on multiple vitamins like vitamin B12, vitamin D and folate. She's sitting in chair fully awake and oriented, she denies any symptoms. No chest pain or dyspnea or coughing. No nausea vomiting or diarrhea. No evidence of bleeding from anywhere. No headache or dizziness or weakness or numbness. Also she denies any urinary symptoms and in view of her positive urine culture most likely patient has asymptomatic bacteriuria. CT of the chest showing massive splenomegaly and liver ultrasound showing cholelithiasis with hepatosplenomegaly, patient informed that she has hepatomegaly, Also she has low vitamin B12 at 255, she is on replacement therapy and effort to her vitamin B12 injection and she declined risk of reversible nerve damage are explained for the patient and she verbalized understanding but she still wants to continue with pills, patient was instructed to check her level with her doctor in 1-2 months and she agrees. Patient also denies any chest pain or dyspnea. No other respiratory symptoms, no leg pain or swelling or tenderness. Elevated lactate dehydrogenase at 3696. WBC is 2.3, potassium slightly trending up 3.7 and 5.4 most likely secondary to hemolysis. Bilirubin is elevated at 2.7, conjugated is 2.0 and conjugated is 0. LDH is 329. Patient also she has appointment and downtown with Dr. Rose next week, patient is aware of this appointment referred to by hematology and oncology team and she intends to follow up as an outpatient. Patient states that currently she is at her baseline and she is asymptomatic clinically. She is hemodynamically stable Objective - Vital Signs Vital signs: Vital Signs Temp 97.7 F 07/26/21 04:11 Pulse 72 07/26/21 04:11 Resp 16 07/26/21 04:11 BP 110/73 07/26/21 04:11 Pulse Ox 99 07/26/21 04:11 Intake & Output 07/25/21 07/26/21 07/26/21 18:59 06:59 18:59 Intake Total 1080 600 600 Balance 1080 600 600 Intake: Oral 1080 600 600 Other: Voiding Method Toilet Toilet # Voids 1 1 - Exam GENERAL: The patient is alert and oriented x3, not in any acute distress. Well developed, well nourished. HEENT: Pupils are round and equally reacting to light. EOMI. No scleral icterus. No conjunctival pallor. Normocephalic, atraumatic. No pharyngeal erythema. No thyromegaly. CARDIOVASCULAR: S1 and S2 present. No murmurs, rubs, or gallops. PULMONARY: Chest is clear to auscultation, no wheezing or crackles. ABDOMEN: Soft, nontender, nondistended, normoactive bowel sounds. No palpable organomegaly. MUSCULOSKELETAL: No joint swelling or deformity. EXTREMITIES: No cyanosis, clubbing, or pedal edema. NEUROLOGICAL: Gross neurological examination did not reveal any focal deficits. SKIN: No rashes. no petechiae. - Labs CBC & Chem 7: 07/26/21 06:17 07/26/21 06:17 Labs: Abnormal Lab Results - Last 24 Hours (Table) 07/25/21 07/26/21 07/26/21 Range/Units 05:27 06:17 06:17 WBC 2.3 L (3.8-10.6) k/uL RBC 2.40 L (3.80-5.40) m/uL Hgb 7.2 L (11.4-16.0) gm/dL Hct 22.5 L (34.0-46.0) % RDW 21.9 H (11.5-15.5) % Lymphocytes # 0.6 L (1.0-4.8) k/uL Retic Count 10.1 H 12.8 H (0.5-2.0) % Potassium 5.4 H (3.5-5.1) mmol/L BUN 18 H (7-17) mg/dL Glucose 145 H (74-99) mg/dL Total Bilirubin 2.7 H (0.2-1.3) mg/dL Lactate Dehydrogenase 3295 H (313-618) U/L Total Protein 6.2 L (6.3-8.2) g/dL Microbiology - Last 24 Hours (Table) 07/22/21 19:11 Blood Culture - Preliminary Blood No Growth after 72 hours Assessment and Plan Assessment: Hemolytic anemia secondary to autoimmune disease secondary to warm antibiotic per hematology/oncology team Massive splenomegaly and hepatosplenomegaly Asymptomatic bacteriuria Asymptomatic cholelithiasis Vitamin B12 deficiency Mild leukopenia, asymptomatic. Plan: This is a pleasant 50 years old female who was admitted for severe anemia secondary to hemolysis, Hemoglobin is stable at 7.2, patient is completely asymptomatic. Continue with the prednisone 40 mg twice daily per hematology/oncology team recommendation. Also she is on Protonix, no heparin in view of severe anemia continue with vitamin B12 and vitamin D replacement. Patient declined IV B12 injection Patient aware of her follow-up appointment with Dr. Rose as an outpatient per hematology/oncology team Labs and medication were reviewed.. Continue same treatment. Continue with symptomatic treatment. Resume home medication. Monitor lytes and vitals. DVT and GI prophylaxis. Further recommendationsas per clinical course of the patient DVT prophylaxis: no Subcutaneous heparin in view of severe anemia, patient is also mobile GI Prophylaxis: Ppi
--- NOTE | 2021-07-27 21:46 | P.DS ---
Providers Date of admission: 07/22/21 16:30 Attending physician: Fabricio Zurita Consults: 07/22/21 16:31 Consult Physician Routine Consulting Provider: Juanis Parks Consult Reason/Comments: Oncological care Do you want consulting provider notified?: Already Contacted Primary care physician: Kurt Palomo [facility] Course: The patient was discharged by the on-call physician Dr. Valdez without notifying me. MACIE from Oncologist service called the RN, apparently the patient was cleared for discharge by oncology team and Macie and bedside nurse Sylvie contacted as per Sylvie, the pt has texted her pcp gynenocologist or pcp office asking to be discharge , whom contacted Macie When I called to the unit , the bedside nurse told me the patient already has left the floor and went home, I called pt Ms. Stauffer at [phone], and updated her about discharge instruction, she already knows that she's going to call Dr. Parks office on this Wednesday for a blood work on Friday 07/28, also I offered to leave a prescription for blood work for her CBC and BMP and she told me she does not need that she is just going to follow up with Dr. Parks office. Also I discussed with the patient and her discharge medication including the prednisone 40 mg twice daily and Protonix 40 mg twice daily (per oncoology service recommendation) and prescription will be sent to her pharmacy at [place] on the . at [facility]. 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 Mrs. Stauffer aware that she would need to be placed on tapered prednisone after Wednesday blood work and she's going to contact Macie for further prescription for prednisone. She is aware that her current prescription for prednisone is only for 4 days and she will need further prescription of from her doctor otherwise she was advised to come to emergency room for any other issues. She agrees Also I informed her about trending up potassium which is most likely from hemolysis, patient was instructed to consume less fruits, vegetable and juices and she verbalized understanding and acceptance and she is aware to need to recheck her potassium when she is going to see Macie this Wednesday.discharge medications reviewed , she is not on mikayla inhibitor Plan - Discharge Summary Discharge Rx Participant: Yes New Discharge Prescriptions: New predniSONE 40 mg PO BID 4 Days #32 tab Continue Levothyroxine Sodium [Synthroid] 75 mcg PO DAILY Cholecalciferol [Vitamin D3 (25 Mcg = 1000 Iu)] 25 mcg PO DAILY Ascorbic Acid [Vitamin C] 500 mg PO DAILY Cyanocobalamin (Vitamin B-12) [Vitamin B-12] 1,000 mcg PO DAILY Changed Pantoprazole Sodium [Protonix] 40 mg PO BID #60 tab Discharge Medication List Levothyroxine Sodium [Synthroid] 75 mcg PO DAILY 11/19/17 [History] Ascorbic Acid [Vitamin C] 500 mg PO DAILY 07/15/21 [History] Cholecalciferol [Vitamin D3 (25 Mcg = 1000 Iu)] 25 mcg PO DAILY 07/15/21 [History] Cyanocobalamin (Vitamin B-12) [Vitamin B-12] 1,000 mcg PO DAILY 07/15/21 [History] Pantoprazole Sodium [Protonix] 40 mg PO BID #60 tab 07/26/21 [Rx] predniSONE 40 mg PO BID 4 Days #32 tab 07/26/21 [Rx] Follow up Appointment(s)/Referral(s): Kurt Ribeiro III, MD [Primary Care Provider] - 1-2 days (patient instructed to call Dr. Ribeiro's office on Wednesday to schedule follow up appointment) Juansi Parks MD [STAFF PHYSICIAN] - 1-2 Days (call office on Wednesday to schedule blood draw for Wednesday on Jul 29, 2021) Patient Instructions/Handouts: Prednisone (By mouth), Pantoprazole (By mouth), Anemia (DC), Enlarged Spleen (GEN) Activity/Diet/Wound Care/Special Instructions: Low carbohydrate diet 1600 kcal per day activity is restricted till you see your doctor Please call Dr. Parks's office on Wednesday and set up a blood draw for this coming 07/29/2021, Macie and Dr. Parks will taper your prednisone after the CBC done on Wednesday. Discharge Disposition: HOME SELF-CARE
== END 2021-07-26 19:30 | disposition home or self-care (01) | DRG 812 ==
LOC: EC 15:50 → 5NMEDONC 16:30
PROVIDERS: ADMIT Hospitalist; ATTEND Hospitalist
PROC: 30233N1 Transfusion of Nonautologous Red Blood Cells into Peripheral Vein, Percutaneous Approach (ICD-10-PCS; principal; 2021-07-23)
DX: D58.9 Hereditary hemolytic anemia, unspecified (principal); D59.10 Autoimmune hemolytic anemia, unspecified; D61.818 Other pancytopenia; D46.9 Myelodysplastic syndrome, unspecified; E03.9 Hypothyroidism, unspecified; R82.71 Bacteriuria; E53.8 Deficiency of other specified B group vitamins; E66.9 Obesity, unspecified; K80.20 Calculus of gallbladder without cholecystitis without obstruction; R16.1 Splenomegaly, not elsewhere classified; Z68.30 Body mass index [BMI] 30.0-30.9, adult; Z79.890 Hormone replacement therapy; Z79.899 Other long term (current) drug therapy; Z80.9 Family history of malignant neoplasm, unspecified; Z90.710 Acquired absence of both cervix and uterus; Z20.822 Contact with and (suspected) exposure to COVID-19; Z98.890 Other specified postprocedural states; Z88.1 Allergy status to other antibiotic agents; Z88.0 Allergy status to penicillin; Z88.2 Allergy status to sulfonamides; Z88.8 Allergy status to other drugs, medicaments and biological substances
CPT/HCPCS: 71045; 71260; 76705; 80048; 80053; 80306; 81001; 82248; 82607; 82728; 82955; 83010; 83021; 83540; 83550; 83615; 84425; 84550; 85025; 85045; 85379; 85384; 85610; 85652; 86038; 86140; 86431; 86850; 86870; 86880; 86900; 86901; 86920; 87040; 87086; 87635; 93976; 99284

== ENCOUNTER → 2021-08-15 | Outpatient (CLI) | payer BC ==
--- NOTE | 2021-08-16 18:36 | PE ---
EXAMINATION TYPE: PET CT fusion skull to thigh DATE OF EXAM: 08/15/2021 CLINICAL HISTORY: Lymphoma TECHNIQUE: Following the intravenous administration of 9.51 mCi of F-18 FDG, whole body images are performed from the skull base to the midthigh. Images are reviewed on the computer in the coronal, a xial, and sagittal planes. Reconstructed rotating images are created on independent workstation and reviewed on the computer. A non-contrast CT is performed in conjunction with the PET scan. Blood glu cose of 79 mg/dL. COMPARISON: CT chest with contrast 07/23/2021, CT chest abdomen and pelvis with contrast 07/02/2021. FINDINGS: SKULL BASE AND NECK: No suspicious radiotracer uptake. CHEST, MEDIASTINUM, AND HILAR REGION: No suspicious radiotracer uptake. ABDOMEN AND PELVIS: No suspicious radiotracer uptake. There is scattered areas of physiologic uptake within the bowel. OSSEOUS STRUCTURES: No suspicious radiotracer uptake. OTHER CT: The heart is enlarged for size. The ascending thoracic aorta demonstrates mild dilation lauren suring up to 43 mm. Coronary artery calcifications are present. Right lower lobe air cyst is again se en. The spleen remains enlarged but has decreased in size compared to prior on 07/02/2021.The spleen now measures 13.0 cm previously 15.3 cm in the axial plane. Multiple measurements were taken of the s pleen and all are smaller compared to prior. Multilevel disc degeneration changes are present. Bony i slands are again seen within the pelvis. IMPRESSION: 1. No evidence of suspicious FDG activity within the head, neck, chest, abdomen or pelvis. No suspici ous osseous lesions. 2. Splenomegaly with interval decrease in size of the spleen compared to 07/02/2021.
== END | disposition home or self-care (01) ==
LOC: RADPETMAIN 15:46
PROVIDERS: ATTEND Internal Medicine Hematology & Oncology
DX: C85.90 Non-Hodgkin lymphoma, unspecified, unspecified site (principal)
CPT/HCPCS: 78815; A9552

== ENCOUNTER → 2021-08-26 | Outpatient (CLI) | payer BC ==
--- NOTE | 2021-08-28 10:26 | MM ---
Reason for exam: screening (asymptomatic). Last mammogram was performed 1 year and 1 month ago. History: Family history of breast cancer in paternal aunt. Benign cyst aspiration of the left breast, 1996. Taking hormonal contraceptives for 9 months beginning at age 33. Physical Findings: A clinical breast exam by your physician is recommended on an annual basis and results should be correlated with mammographic findings. MG Screening Mammo w CAD Bilateral CC and MLO view(s) were taken. Prior study comparison: July 30, 2020, bilateral MG screening mammo w CAD. June 29, 2019, bilateral MG screening mammo w CAD. The breast tissue is heterogeneously dense. This may lower the sensitivity of mammography. Right posterior upper outer quadrant grouped calcifications, unchanged from 2019. Three course calcifications posterior left breast are typically benign. Short interval follow up since these are new. ASSESSMENT: Probably benign, BI-RAD 3 RECOMMENDATION: Follow-up diagnostic mammogram of the left breast in 6 months. (3D)
== END | disposition home or self-care (01) ==
LOC: RADMAMWWP 14:27
PROVIDERS: ATTEND Obstetrics & Gynecology
DX: Z12.31 Encounter for screening mammogram for malignant neoplasm of breast (principal); Z80.3 Family history of malignant neoplasm of breast
CPT/HCPCS: 77067

== ENCOUNTER → 2021-12-20 | Outpatient (CLI) | payer BC ==
[2021-12-20 16:29] LABS: Basophils # (A) 0.03 X 10*3/uL (0.00-0.10); Basophils % (A) 0.8 %; Eosinophils # (A) 0.07 X 10*3/uL (0.04-0.35); Eosinophils % (A) 1.9 %; HCT 39.8 % (37.2-46.3); HGB 12.6 g/dL (12.0-15.0); Immature Grans, Automated 0.3 %; Lymphocytes # (A) 1.33 X 10*3/uL (0.90-5.00); Lymphocytes % (A) 35.8 %; MCH 28.2 pg (27.0-32.0); MCHC 31.7 g/dL (32.0-37.0); Mean Platelet Volume 10.1 fL (9.5-12.2); Monocytes # (A) 0.41 X 10*3/uL (0.20-1.00); Monocytes % (A) 11.1 %; NRBC Per 100 WBC 0 /100 WBCS (0.0-0.0); Neutrophils # (A) 1.86 X 10*3/uL (1.80-7.70); Neutrophils % (A) 50.1 %; Platelet Count 187 X 10*3/uL (140-440); RBC 4.47 X 10*6/uL (4.10-5.20); RDW 13.8 % (11.5-14.5); WBC 3.71 X 10*3/uL (4.50-10.00)
[2021-12-20 17:00] LABS: Chol/HDL Ratio 2.35 Ratio; LDL Cholesterol,Calculated 63.6 mg/dL (0.0-131.0); VLDL Calculation 18.56 mg/dL (5.00-40.00)
== END | disposition home or self-care (01) ==
LOC: LABWHC1 09:02
PROVIDERS: ATTEND Family Medicine
DX: D72.819 Decreased white blood cell count, unspecified (principal); D51.8 Other vitamin B12 deficiency anemias; E03.9 Hypothyroidism, unspecified; E55.9 Vitamin D deficiency, unspecified
CPT/HCPCS: 36415; 80061; 82306; 82607; 84439; 84443; 85025

== ENCOUNTER → 2022-03-03 | Outpatient (CLI) | payer BC ==
--- NOTE | 2022-03-03 10:48 | MM ---
Reason for Exam: Follow-up at short interval from prior study. Last screening mammogram was performed 6 month(s) ago. Patient History: Menarche at age 11. First Full-Term at age 21. Right ovary removed at age 39. Hysterectomy at age 39. Postmenopausal. Hormonal Contraceptives for 9 months starting at age 33. 1997, Benign Cyst Aspiration on the left side. Paternal aunt had breast cancer. Risk Values: Larissa 5 year model risk: 0.9%. NCI Lifetime model risk: 7.8%. Prior Study Comparison: 06/29/2019 Bilateral Screening Mammogram, [facility]. 07/30/2020 Bilateral Screening Mammogram, [facility]. 08/26/2021 Bilateral Screening Mammogram, [facility]. Tissue Density: Left: The breast tissue is heterogeneously dense. This may lower the sensitivity of mammography. Findings: Analyzed By CAD. Punctate benign-appearing calcifications left breast appear unchanged. No new calcifications. No evidence for mass or distortion. Overall Assessment: Benign, BI-RAD 2 Management: Screening Mammogram of both breasts in 6 months. A clinical breast exam by your physician is recommended on an annual basis and results should be correlated with mammographic findings. This exam should not preclude additional follow-up of suspicious palpable abnormalities. Results were given to the patient verbally at the time of exam. Electronically signed and approved by: Yoel Vega M.D. Radiologis
== END | disposition home or self-care (01) ==
LOC: RADMAMWWP 09:39
PROVIDERS: ATTEND Obstetrics & Gynecology
DX: R92.8 Other abnormal and inconclusive findings on diagnostic imaging of breast (principal); Z80.3 Family history of malignant neoplasm of breast; Z78.0 Asymptomatic menopausal state
CPT/HCPCS: 77065

== ENCOUNTER → 2022-07-17 | Outpatient (CLI) | payer BC ==
[2022-07-17 15:39] LABS: Basophils # (A) 0.02 X 10*3/uL (0.00-0.10); Basophils % (A) 0.5 %; Eosinophils # (A) 0.06 X 10*3/uL (0.04-0.35); Eosinophils % (A) 1.5 %; HCT 41.2 % (37.2-46.3); HGB 13.1 g/dL (12.0-15.0); Immature Grans, Automated 0 %; Lymphocytes # (A) 1.94 X 10*3/uL (0.90-5.00); Lymphocytes % (A) 48.9 %; MCH 27.4 pg (27.0-32.0); MCHC 31.8 g/dL (32.0-37.0); MCV 86.2 fL (80.0-97.0); Mean Platelet Volume 9.2 fL (9.5-12.2); Monocytes # (A) 0.48 X 10*3/uL (0.20-1.00); Monocytes % (A) 12.1 %; NRBC Per 100 WBC 0 /100 WBCS (0.0-0.0); Neutrophils # (A) 1.47 X 10*3/uL (1.80-7.70); Platelet Count 165 X 10*3/uL (140-440); RBC 4.78 X 10*6/uL (4.10-5.20); RDW 13.9 % (11.5-14.5); WBC 3.97 X 10*3/uL (4.50-10.00)
[2022-07-18 02:07] LABS: ALT 12 U/L (8-44); AST 14 U/L (13-35); African American GFR (CKD) 117.4 (60.0-200.0); Albumin 4.8 g/dL (3.8-4.9); Albumin/Globulin Ratio 2.28 (1.60-3.17); Alkaline Phosphatase 82 U/L (41-126); BUN/Creat Ratio 21.17 Ratio (12.00-20.00); Blood Urea Nitrogen 14.1 mg/dL (9.0-27.0); Calcium 9.6 mg/dL (8.7-10.3); Chloride 103 mmol/L (96-109); Chol/HDL Ratio 2.75 Ratio; Globulin 2.1 g/dL (1.6-3.3); Glucose 96 mg/dL (70-110); LDL Cholesterol,Calculated 72.5 mg/dL (0.0-131.0); Non-African American GFR(CKD) 101.3 (60.0-200.0); Potassium 4.6 mmol/L (3.5-5.5); Sodium 144 mmol/L (135-145); Total Protein 6.9 g/dL (6.2-8.2); VLDL Calculation 15.98 mg/dL (5.00-40.00)
== END | disposition home or self-care (01) ==
LOC: LABWHC1 09:33
PROVIDERS: ATTEND Family Medicine
DX: E03.9 Hypothyroidism, unspecified (principal); E55.9 Vitamin D deficiency, unspecified
CPT/HCPCS: 36415; 80053; 80061; 82306; 84439; 84443; 85025

== ENCOUNTER → 2022-11-06 | Outpatient (CLI) | payer BC ==
--- NOTE | 2022-11-06 16:25 | CT ---
EXAMINATION TYPE: CT abdomen pelvis w con DATE OF EXAM: 11/06/2022 HISTORY: SPLENOMEGALY CT DLP: 1477mGycm Automated Exposure Control for Dose Reduction was Utilized. CONTRAST: CT scan of the abdomen and pelvis is performed with IV Contrast, patient injected with 100 CC mL of I sovue 300. COMPARISON: Prior PET/CT August 15, [address] July 02, 2021 FINDINGS: LUNG BASES: No significant abnormality is appreciated. LIVER/GB: Mild hepatomegaly redemonstrated. Main portal vein is patent and mildly dilated measuring u p to 1.8 cm axial image 29. No significant change from prior. There is dilated but patent tortuous dr aining splenic vein redemonstrated. Subtle small low dense intraluminal gallstones are redemonstrated . PANCREAS: No significant abnormality is seen. SPLEEN: Confirmation of massive splenomegaly occupying majority of the left abdomen measuring 22.0 cm long axis coronal image 38 current study. Local mass effect particularly on left kidney is redemonst rated ADRENALS: No significant abnormality is seen. KIDNEYS: No significant abnormality is seen. BOWEL: Oral contrast reaches level of the hepatic flexure. No suspicious small or large bowel dilatat ion is seen. Ligament of Treitz is pushed to the right due to splenomegaly. GENITAL ORGANS: Uterus is small in size or atrophic in appearance is redemonstrated. LYMPH NODES: No new greater than 1cm abdominal or pelvic lymph nodes are appreciated. OSSEOUS STRUCTURES: Moderate to severe disc space narrowing lumbosacral junction with vacuum disc phe nomenon. OTHER: No significant additional abnormality is seen. IMPRESSION: Marked splenomegaly is redemonstrated. Size stable or slightly smaller from prior CT. Dil ated tortuous but patent splenic vein is redemonstrated. Dilated but patent portal vein again seen. H epatomegaly is redemonstrated but to lesser degree. No abnormal adenopathy clearly seen. No ascites e vident. No significant change from prior CT and PET/CT.
== END | disposition home or self-care (01) ==
LOC: RADCTMAIN 14:01
PROVIDERS: ATTEND Internal Medicine Hematology & Oncology
DX: Z03.89 Encounter for observation for other suspected diseases and conditions ruled out (principal); R16.2 Hepatomegaly with splenomegaly, not elsewhere classified
CPT/HCPCS: 74177; Q9967

== ENCOUNTER → 2022-12-23 | Outpatient (CLI) | payer BC ==
[2022-12-23 20:45] LABS: ALT 18 U/L (8-44); AST 17 U/L (13-35); Albumin 4.5 d/dL (3.8-4.9); Albumin/Globulin Ratio 2.65 Ratio (1.60-3.17); Alkaline Phosphatase 69 U/L (41-126); BUN/Creat Ratio 21.29 Ratio (12.00-20.00); Blood Urea Nitrogen 14.9 mg/dL (9.0-27.0); Carbon Dioxide 31.2 mmol/L (21.6-31.8); Chloride 98 mmol/L (96-109); Globulin 1.7 d/dL (1.6-3.3); Glucose 99 mg/dL (70-110); Potassium 4.1 mmol/L (3.5-5.5); Sodium 140 mmol/L (135-145); T4, Free (Free Thyroxine) 1.74 ng/dL (0.80-1.80); Total Bilirubin 1.7 mg/dL (0.3-1.2); Total Protein 6.2 d/dL (6.2-8.2)
== END | disposition home or self-care (01) ==
LOC: LABWHC1 11:51
PROVIDERS: ATTEND Obstetrics & Gynecology
DX: Z00.01 Encounter for general adult medical examination with abnormal findings (principal); E03.9 Hypothyroidism, unspecified; E55.9 Vitamin D deficiency, unspecified
CPT/HCPCS: 36415; 80053; 82306; 84439; 84443

== ENCOUNTER → 2023-02-11 | Outpatient (CLI) | payer BC ==
--- NOTE | 2023-02-11 08:31 | MM ---
Reason for Exam: Additional evaluation requested from abnormal screening. Last screening mammogram was performed less than 1 month ago. Patient History: Menarche at age 11. First Full-Term at age 21. Right ovary removed at age 39. Hysterectomy at age 39. Postmenopausal. Hormonal Contraceptives for 9 months starting at age 33. 1997, Benign Cyst Aspiration on the left side. Paternal aunt had breast cancer. Risk Values: Larissa 5 year model risk: 1.0%. NCI Lifetime model risk: 7.7%. Prior Study Comparison: 06/29/2019 Bilateral Screening Mammogram, [facility]. 07/30/2020 Bilateral Screening Mammogram, [facility]. 08/26/2021 Bilateral Screening Mammogram, [facility]. 03/03/2022 Left MG diagnostic mammo LT w CAD, [facility]. 02/04/2023 Bilateral MG 3D screening mammo w/cad, [facility]. Tissue Density: Right: The breast tissue is heterogeneously dense. This may lower the sensitivity of mammography. Findings: Analyzed By CAD. Grouped punctate microcalcifications far posterior upper outer quadrant have a punctate morphology. These are probably benign. We note that these were present previously but may be minimally increasing. Six-month follow-up recommended. Overall Assessment: Probably benign, BI-RAD 3 Management: Diagnostic Mammogram of the right breast in 6 months. . Results were given to the patient verbally at the time of exam. Patient should continue monthly self-breast exams. A clinical breast exam by your physician is recommended on an annual basis. This exam should not preclude additional follow-up of suspicious palpable abnormalities. Note on Larissa scores and lifetime risk: 1. A Larissa score greater than 3% is considered moderate risk. If this is the case, consider specialist referral to assess eligibility for a risk reducing agent. 2. If overall lifetime risk for the development of breast cancer is 20% or higher, the patient may qualify for future screening with alternating mammogram and breast MRI. Electronically signed and approved by: Everardo Day M.D. Radiologist
== END | disposition home or self-care (01) ==
LOC: RADMAMWWP 07:41
PROVIDERS: ATTEND Obstetrics & Gynecology
DX: R92.8 Other abnormal and inconclusive findings on diagnostic imaging of breast (principal); Z80.3 Family history of malignant neoplasm of breast; Z78.0 Asymptomatic menopausal state
CPT/HCPCS: 77061; 77065

== ENCOUNTER 2023-03-30 09:14 | Day surgery (SDC) | payer BC ==
[2023-03-30] MEDS ORDERED: LACTATED RINGERS 1,000 ML IV SCH (09:36)
[2023-03-30] MEDS ORDERED: LIDOCAINE 1% (10MG/ML) FOR IV START INTRADERMA ONE (09:51)
[2023-03-30 09:57] VITALS: TEMP 98
[2023-03-30] MEDS ORDERED: PROPOFOL 10 MG/ML 20 ML VIAL IV ONE (10:00)
--- NOTE | 2023-03-30 10:15 | P.PCN ---
Date of Procedure: 03/30/23 Procedure(s) Performed: BRIEF HISTORY: Patient is a 52-year-old pleasant white female scheduled for an elective colonoscopy as a part of history of colon polyps and family history of colon cancer. Her dad was diagnosed with colon cancer at age 59. PROCEDURE PERFORMED: Colonoscopy. PREOPERATIVE DIAGNOSIS: History of colon polyps and family history of colon cancer. IV sedation per Anesthesia. PROCEDURE: After informed consent was obtained, the patient, was brought into the endoscopy unit. IV sedation was administered by Anesthesia under continuous monitoring. Digital rectal examination was normal. Initially the Olympus CF-160 flexible video colonoscope was then inserted in the rectum, gradually advanced into the cecum without any difficulty. Careful examination was performed as the scope was gradually being withdrawn. Ileocecal valve and the appendiceal orifice were visualized and appeared normal. Prep was excellent. Mucosa of the cecum, ascending colon, transverse colon, descending colon, sigmoid colon, and rectum appeared normal. Scattered sigmoid diverticulosis Retroflexion was performed in the rectum and no lesions were seen. The patient tolerated the procedure well. IMPRESSION: Normal-appearing colon from rectum to cecum with no evidence of colorectal neoplasia Scattered sigmoid diverticulosis. RECOMMENDATIONS: Findings of this examination were discussed with the patient as well as a family.. She was advised to have a repeat screening colonoscopy in 5 years because of the family history of colon cancer.
[2023-03-30 10:48] VITALS: BP 114/72; PULSE 73; RESP 14
== END 2023-03-30 10:51 | disposition home or self-care (01) ==
LOC: ORWHC2ENDO 09:14
PROVIDERS: ATTEND Internal Medicine Gastroenterology
DX: Z12.11 Encounter for screening for malignant neoplasm of colon (principal); Z80.0 Family history of malignant neoplasm of digestive organs; Z86.010 Personal history of colon polyps; K21.9 Gastro-esophageal reflux disease without esophagitis; K57.30 Diverticulosis of large intestine without perforation or abscess without bleeding; E07.9 Disorder of thyroid, unspecified; Z88.1 Allergy status to other antibiotic agents; Z88.0 Allergy status to penicillin; Z88.2 Allergy status to sulfonamides; Z79.899 Other long term (current) drug therapy
CPT/HCPCS: 45378; J2704

== ENCOUNTER → 2023-07-23 | Outpatient (CLI) | payer BC ==
[2023-07-23 16:19] LABS: HCT 40.5 % (37.2-46.3); HGB 13.3 g/dL (12.0-15.0); MCH 28.3 pg (27.0-32.0); MCHC 32.8 g/dL (32.0-37.0); MCV 86.2 FL (80.0-97.0); Mean Platelet Volume 10.2 FL (9.5-12.2); NRBC Per 100 WBC 0 X 10*3/uL (0.00-0.01); Platelet Count 170 X 10*3/uL (140-440); RDW 14.6 % (11.5-14.5); WBC 3.35 X 10*3/uL (4.50-10.00)
[2023-07-23 17:07] LABS: % Iron Saturation 16.16 (12.00-45.00); ALT 12 U/L (8-44); AST 16 U/L (13-35); Albumin 4.6 g/dL (3.8-4.9); Albumin/Globulin Ratio 2.19 Ratio (1.60-3.17); Alkaline Phosphatase 75 U/L (41-126); Blood Urea Nitrogen 10.5 mg/dL (9.0-27.0); Calcium 9.7 mg/dL (8.7-10.3); Carbon Dioxide 25.8 mmol/L (21.6-31.8); Chloride 103 mmol/L (96-109); Ferritin 94.9 ng/mL (10.0-291.0); Globulin 2.1 g/dL (1.6-3.3); Glucose 92 mg/dL (70-110); Iron 48 UG/DL (50-170); Magnesium 1.8 mg/dL (1.5-2.4); Potassium 4.4 mmol/L (3.5-5.5); Sodium 141 mmol/L (135-145); Total Bilirubin 0.6 mg/dL (0.3-1.2); Total Iron Binding Capacity 297 UG/DL (228-460); Total Protein 6.7 g/dL (6.2-8.2)
== END | disposition home or self-care (01) ==
LOC: LABWHC1 09:37
PROVIDERS: ATTEND Internal Medicine
DX: E03.9 Hypothyroidism, unspecified (principal); E55.9 Vitamin D deficiency, unspecified; K21.9 Gastro-esophageal reflux disease without esophagitis; D59.10 Autoimmune hemolytic anemia, unspecified
CPT/HCPCS: 36415; 80053; 80061; 82306; 82728; 83010; 83036; 83540; 83550; 83625; 83735; 84443; 85027

== ENCOUNTER → 2023-07-28 | Outpatient (CLI) | payer BC ==
[2023-07-28 15:08] LABS: Basophils # (A) 0.03 X 10*3/uL (0.00-0.10); Basophils % (A) 0.9 %; Eosinophils # (A) 0.04 X 10*3/uL (0.04-0.35); Eosinophils % (A) 1.2 %; HCT 39.5 % (37.2-46.3); Lymphocytes # (A) 1.45 X 10*3/uL (0.90-5.00); Lymphocytes % (A) 44.1 %; MCH 28.4 pg (27.0-32.0); MCHC 32.9 g/dL (32.0-37.0); MCV 86.4 FL (80.0-97.0); Mean Platelet Volume 10.2 FL (9.5-12.2); Monocytes % (A) 12.2 %; NRBC Per 100 WBC 0 X 10*3/uL (0.00-0.01); Neutrophils # (A) 1.36 X 10*3/uL (1.80-7.70); Neutrophils % (A) 41.3 %; Platelet Count 171 X 10*3/uL (140-440); RBC 4.57 X 10*6/uL (4.10-5.20); RDW 14.6 % (11.5-14.5); WBC 3.29 X 10*3/uL (4.50-10.00)
== END | disposition home or self-care (01) ==
LOC: LABWHC1 12:22
PROVIDERS: ATTEND Internal Medicine
DX: D59.10 Autoimmune hemolytic anemia, unspecified (principal); E55.9 Vitamin D deficiency, unspecified; E03.9 Hypothyroidism, unspecified; K21.9 Gastro-esophageal reflux disease without esophagitis
CPT/HCPCS: 36415; 83615; 85025

== ENCOUNTER → 2023-08-17 | Outpatient (CLI) | payer BC ==
--- NOTE | 2023-08-17 09:48 | MM ---
Reason for Exam: Follow-up at short interval from prior study. Last screening mammogram was performed 6 month(s) ago. Patient History: Menarche at age 11. First Full-Term at age 21. Right ovary removed at age 39. Hysterectomy at age 39. Postmenopausal. Hormonal Contraceptives for 9 months starting at age 33. 1997, Benign Cyst Aspiration on the left side. Paternal aunt had breast cancer. Risk Values: Larissa 5 year model risk: 1.0%. NCI Lifetime model risk: 7.7%. Prior Study Comparison: 03/03/2022 Left MG diagnostic mammo LT w CAD, [facility]. 02/04/2023 Bilateral MG 3D screening mammo w/cad, [facility]. 02/11/2023 Right MG 3D work up w/cad RT, [facility]. Tissue Density: Right: The breast tissue is heterogeneously dense. This may lower the sensitivity of mammography. Findings: Analyzed By CAD. Again noted are a cluster of punctate calcifications upper outer right breast posterior one third which appear to have been present dating back to 2019. Continued six-month follow-up is advised however. Overall Assessment: Probably benign, BI-RAD 3 Management: Diagnostic Mammogram of both breasts in 6 months. . Results were given to the patient verbally at the time of exam. Patient should continue monthly self-breast exams. A clinical breast exam by your physician is recommended on an annual basis. This exam should not preclude additional follow-up of suspicious palpable abnormalities. Note on Larissa scores and lifetime risk: 1. A Larissa score greater than 3% is considered moderate risk. If this is the case, consider specialist referral to assess eligibility for a risk reducing agent. 2. If overall lifetime risk for the development of breast cancer is 20% or higher, the patient may qualify for future screening with alternating mammogram and breast MRI. Electronically signed and approved by: Yoel Vega M.D. Radiologis
== END | disposition home or self-care (01) ==
LOC: RADMAMWWP 09:28
PROVIDERS: ATTEND Obstetrics & Gynecology
DX: R92.331 Mammographic heterogeneous density, right breast (principal); Z80.3 Family history of malignant neoplasm of breast; Z78.0 Asymptomatic menopausal state
CPT/HCPCS: 77061; 77065

== ENCOUNTER → 2024-03-17 | Outpatient (CLI) | payer BC ==
--- NOTE | 2024-03-17 11:33 | MM ---
Reason for Exam: Additional evaluation requested from prior study. Last mammogram was performed 1 year(s) and 1 month(s) ago. Patient History: Menarche at age 11. First Full-Term at age 21. Right ovary removed at age 39. Hysterectomy at age 39. Postmenopausal. Hormonal Contraceptives for 9 months starting at age 33. 1997, Benign Cyst Aspiration on the left side. Paternal aunt had breast cancer. Risk Values: Larissa 5 year model risk: 1.0%. NCI Lifetime model risk: 7.5%. Prior Study Comparison: 04/03/2005 Bilateral Screening Mammogram, [facility]. 02/11/2010 Bilateral Screening Mammogram, [facility]. 06/26/2011 Bilateral Screening Mammogram, [facility]. 10/28/2012 Bilateral Screening Mammogram, [facility]. 11/07/2013 Bilateral Screening Mammogram, [facility]. 12/26/2014 Bilateral Screening Mammogram, [facility]. 03/27/2016 Bilateral Screening Mammogram, [facility]. 05/25/2017 Bilateral Screening Mammogram, [facility]. 06/07/2018 Bilateral Screening Mammogram, [facility]. 06/29/2019 Bilateral Screening Mammogram, [facility]. 07/30/2020 Bilateral Screening Mammogram, [facility]. 08/26/2021 Bilateral Screening Mammogram, [facility]. 03/03/2022 Left MG diagnostic mammo LT w CAD, [facility]. 02/04/2023 Bilateral MG 3D screening mammo w/cad, [facility]. 02/11/2023 Right MG 3D work up w/cad RT, [facility]. 08/17/2023 Right MG 3D diag mammo w/cad RT, [facility]. Tissue Density: The breasts are heterogeneously dense, which may obscure small masses. Findings: Analyzed By CAD. The questioned posterior calcifications on the left remain unchanged. Asymmetric density superior left MLO view does not persist on additional views. No significant change from prior exams. Overall Assessment: Benign, BI-RAD 2 Management: Screening Mammogram of both breasts in 1 year. . Results were given to the patient verbally at the time of exam. Patient should continue monthly self-breast exams. A clinical breast exam by your physician is recommended on an annual basis. This exam should not preclude additional follow-up of suspicious palpable abnormalities. Note on Larissa scores and lifetime risk: 1. A Larissa score greater than 3% is considered moderate risk. If this is the case, consider specialist referral to assess eligibility for a risk reducing agent. 2. If overall lifetime risk for the development of breast cancer is 20% or higher, the patient may qualify for future screening with alternating mammogram and breast MRI. Electronically signed and approved by: Everardo Day M.D. Radiologist
== END | disposition home or self-care (01) ==
LOC: RADMAMWWP 10:31
PROVIDERS: ATTEND Obstetrics & Gynecology
DX: R92.8 Other abnormal and inconclusive findings on diagnostic imaging of breast (principal); R92.333 Mammographic heterogeneous density, bilateral breasts; Z78.0 Asymptomatic menopausal state; Z80.3 Family history of malignant neoplasm of breast; Z90.721 Acquired absence of ovaries, unilateral
CPT/HCPCS: 77062; 77066

== ENCOUNTER → 2024-04-11 | Outpatient (CLI) | payer BC ==
[2024-04-11 15:21] LABS: Appearance,Urine Clear (Clear); Bilirubin,Urine Negative (Negative); Blood,Urine Negative (Negative); Color,Urine Yellow (Yellow); Ketones,Urine Negative (Negative); Nitrite,Urine Negative (Negative); Specific Gravity,Urine 1.009 (1.001-1.030); Urobilinogen,Urine 0.2 E.U./DL
[2024-04-11 16:15] LABS: Bacteria,Urine None Seen (None Seen)
[2024-04-11 16:30] LABS: Basophils # (A) 0.02 X 10*3/uL (0.00-0.10); Basophils % (A) 0.5 %; Eosinophils # (A) 0.07 X 10*3/uL (0.04-0.35); Eosinophils % (A) 1.6 %; HCT 37.9 % (37.2-46.3); HGB 12.4 g/dL (12.0-15.0); Lymphocytes # (A) 1.42 X 10*3/uL (0.90-5.00); Lymphocytes % (A) 33.2 %; MCH 29.5 pg (27.0-32.0); MCHC 32.7 g/dL (32.0-37.0); MCV 90.2 FL (80.0-97.0); Mean Platelet Volume 10.7 FL (9.5-12.2); Monocytes # (A) 0.49 X 10*3/uL (0.20-1.00); Monocytes % (A) 11.4 %; NRBC Per 100 WBC 0 X 10*3/uL (0.00-0.01); Neutrophils # (A) 2.27 X 10*3/uL (1.80-7.70); Neutrophils % (A) 53.1 %; Platelet Count 163 X 10*3/uL (140-440); RDW 13.6 % (11.5-14.5); WBC 4.28 X 10*3/uL (4.50-10.00)
[2024-04-11 17:01] LABS: ALT 14 U/L (8-44); AST 14 U/L (13-35); Albumin 4.5 g/dL (3.8-4.9); Alkaline Phosphatase 88 U/L (41-126); BUN/Creat Ratio 20.33 Ratio (12.00-20.00); Blood Urea Nitrogen 12.2 mg/dL (9.0-27.0); Calcium 9.4 mg/dL (8.7-10.3); Carbon Dioxide 27.3 mmol/L (21.6-31.8); Chloride 104 mmol/L (96-109); Chol/HDL Ratio 2.72 Ratio; Globulin 1.8 g/dL (1.6-3.3); Glucose 94 mg/dL (70-110); LDL Cholesterol,Calculated 75.3 mg/dL (0.0-131.0); Magnesium 1.9 mg/dL (1.5-2.4); Potassium 4.5 mmol/L (3.5-5.5); Sodium 141 mmol/L (135-145); Total Bilirubin 0.5 mg/dL (0.3-1.2); Total Protein 6.3 g/dL (6.2-8.2)
== END | disposition home or self-care (01) ==
LOC: LABWHC1 09:30
PROVIDERS: ATTEND Internal Medicine
DX: Z00.00 Encounter for general adult medical examination without abnormal findings (principal); E03.9 Hypothyroidism, unspecified; E55.9 Vitamin D deficiency, unspecified; D59.10 Autoimmune hemolytic anemia, unspecified
CPT/HCPCS: 36415; 80053; 80061; 81001; 82306; 83735; 84443; 85025

== ENCOUNTER → 2024-05-30 | Outpatient (CLI) | payer BC ==
--- NOTE | 2024-05-30 11:40 | US ---
EXAMINATION TYPE: US gallbladder DATE OF EXAM: 05/30/2024 COMPARISON: 07/23/21, CT: 11/06/22 CLINICAL INDICATION: Female, 53 years old with history of K80.50 CALCULUS OF BILE DUCT; gallstones TECHNIQUE: Grayscale and color Doppler imaging of the right upper quadrant was performed. 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 [facility], , 05/30/2024 11:37 AM
== END | disposition home or self-care (01) ==
LOC: RADUSWWP 10:30
PROVIDERS: ATTEND Internal Medicine
DX: K80.50 Calculus of bile duct without cholangitis or cholecystitis without obstruction (principal); K80.20 Calculus of gallbladder without cholecystitis without obstruction
CPT/HCPCS: 76705

== ENCOUNTER → 2024-07-21 | Outpatient (CLI) | payer BC ==
--- NOTE | 2024-07-21 16:12 | NM ---
EXAMINATION TYPE: NM hepatobiliary w EF DATE OF EXAM: 07/21/2024 COMPARISON: NONE INDICATION: Acalculous cholecystitis TECHNIQUE: After the intravenous administration of 5.4 mCi Tc 99m Mebrofenin hepatobiliary scintigrap hy is performed. Images were obtained immediately post injection. FINDINGS: There is prompt uptake and excretion of radiotracer by the liver. Extrahepatic ducts are identified at 8 minutes. The gallbladder is visualized within 10 minutes. Small bowel activity is noted within 42 minutes. At one hour 8 ounces of oral ensure plus is given to mimic CCK and gallbladder ejection fraction is c alculated at 89 %, which is which is elevated. (Normal >35% and <80%.). IMPRESSION: 1. Clinical correlation for biliary hyperkinesia. 2. No obstruction evident [facility], , 07/21/2024 4:10 PM
== END | disposition home or self-care (01) ==
LOC: RADNMMAIN 06:55
PROVIDERS: ATTEND Internal Medicine
DX: K80.00 Calculus of gallbladder with acute cholecystitis without obstruction (principal); F90.8 Attention-deficit hyperactivity disorder, other type
CPT/HCPCS: 78226; A9537

== ENCOUNTER → 2024-10-20 | Outpatient (CLI) | payer BC ==
[2024-10-20 10:37] LABS: Appearance,Urine Clear (Clear); Bacteria,Urine Rare /hpf; Bilirubin,Urine Negative (Negative); Blood,Urine Negative (Negative); Color,Urine Colorless; Glucose,Urine (UA) Negative (Negative); Ketones,Urine Negative (Negative); Leukocyte Esterase,Urine Moderate (Negative); Nitrite,Urine Negative (Negative); PH, Urine 6.5 (5.0-8.0); Protein,Urine Negative (Negative); RBC,Urine <1 /hpf (0-5); Specific Gravity,Urine 1.005 (1.001-1.035); Squamous Epithelial Cell,Urine 1 /hpf (0-4); Urobilinogen,Urine <2.0 mg/dL (<2.0); WBC,Urine 2 /hpf (0-5)
[2024-10-20 16:48] LABS: ALT 20 U/L (8-44); AST 20 U/L (13-35); Albumin 4.4 g/dL (3.8-4.9); Alkaline Phosphatase 99 U/L (41-126); Calcium 9.6 mg/dL (8.7-10.3); Carbon Dioxide 29.5 mmol/L (21.6-31.8); Chloride 101 mmol/L (96-109); Globulin 2.1 g/dL (1.6-3.3); Glucose 104 mg/dL (70-110); LDL Cholesterol,Calculated 73.9 mg/dL (0.0-131.0); Magnesium 1.8 mg/dL (1.5-2.4); Potassium 4.5 mmol/L (3.5-5.5); Sodium 140 mmol/L (135-145); Total Bilirubin 0.6 mg/dL (0.3-1.2); Total Protein 6.5 g/dL (6.2-8.2); VLDL Calculation 19.62 mg/dL (5.00-40.00)
[2024-10-20 17:06] LABS: Basophils # (A) 0.01 X 10*3/uL (0.00-0.10); Basophils % (A) 0.2 %; Eosinophils # (A) 0.05 X 10*3/uL (0.04-0.35); Eosinophils % (A) 1.1 %; HCT 36.6 % (37.2-46.3); HGB 11.9 g/dL (12.0-15.0); Lymphocytes # (A) 1.57 X 10*3/uL (0.90-5.00); Lymphocytes % (A) 35.1 %; MCH 28.7 pg (27.0-32.0); MCHC 32.5 g/dL (32.0-37.0); MCV 88.2 FL (80.0-97.0); Mean Platelet Volume 10.8 FL (9.5-12.2); Monocytes # (A) 0.36 X 10*3/uL (0.20-1.00); Monocytes % (A) 8.1 %; NRBC Per 100 WBC 0 X 10*3/uL (0.00-0.01); Neutrophils # (A) 2.45 X 10*3/uL (1.80-7.70); Neutrophils % (A) 54.8 %; Platelet Count 172 X 10*3/uL (140-440); RBC 4.15 X 10*6/uL (4.10-5.20); RDW 14.2 % (11.5-14.5); WBC 4.47 X 10*3/uL (4.50-10.00)
== END | disposition home or self-care (01) ==
LOC: LABWHC1 09:28
PROVIDERS: ATTEND Internal Medicine
DX: E03.9 Hypothyroidism, unspecified (principal); E55.9 Vitamin D deficiency, unspecified; D59.10 Autoimmune hemolytic anemia, unspecified; R35.0 Frequency of micturition; R73.09 Other abnormal glucose
CPT/HCPCS: 36415; 80053; 80061; 81001; 82607; 82746; 83036; 83735; 84443; 85025